=== PATIENT | female | born 1955 | race Caucasian/White ===

== ENCOUNTER → 2020-05-06 09:29 | Outpatient (CLI) | payer BC, SELFPAY ==
--- NOTE | ~2020-05-06 | XR_ITS ---
EXAMINATION: XR thoracic spine 3V DATE: 05/06/2020 09:54 INDICATION: Thoracic back pain for two months TECHNIQUE: AP, lateral and lateral swimmer's views of the thoracic spine were obtained. COMPARISON: None. FINDINGS: There is mild chronic anterior wedging in the midthoracic spine. No acute fracture is ident ified. The vertebral body heights are otherwise maintained. There is mild loss of intervertebral disc space height in the midthoracic spine. Bone alignment is normal. The prevertebral soft tissues are n ormal. Mild to moderate cervical spondylosis is incidentally noted. IMPRESSION: 1. Mild thoracic spondylosis without acute findings or significant interval change. Reviewed, dictated and finalized at location A. IMPRESSION: 1. Mild thoracic spondylosis without acute findings or significant interval joe charlenee.
== END ==
PROVIDERS: PCP Family Medicine; Visit Provider Family Medicine
DX: M47.894 Other spondylosis, thoracic region (principal)
CPT/HCPCS: 72072

== ENCOUNTER → 2020-07-05 10:25 | Outpatient (CLI) | payer BC, SELFPAY ==
--- NOTE | ~2020-07-05 | MM_ITS ---
EXAMINATION: MM screening brennan BI w janeth HISTORY: Screening mammogram TECHNIQUE: Craniocaudal and mediolateral oblique 3-D tomosynthesis images were obtained and synthetic 2-D images were generated. CAD analysis was submitted and interpreted. COMPARISON: , 03/19/2017 bilateral digital screening mammogram examinations BREAST PARENCHYMAL COMPOSITION: There are scattered areas of fibroglandular density. FINDINGS: Bilateral occasional benign calcifications. There is no evidence of suspicious mass, calcif ication, or architectural distortion to suggest malignancy in either breast. There has been no suspic ious interval change. IMPRESSION: 1. No mammographic evidence of malignancy. 2. Recommend routine screening mammography in one year. BI-RADS Category 2: Benign finding(s). Reviewed, dictated and finalized at location A.
== END ==
PROVIDERS: Visit Provider Obstetrics & Gynecology
DX: Z12.31 Encounter for screening mammogram for malignant neoplasm of breast (principal)
CPT/HCPCS: 77063; 77067

== ENCOUNTER → 2021-07-16 12:16 | Outpatient (CLI) | payer BC, SELFPAY ==
--- NOTE | ~2021-07-16 | MM_ITS ---
EXAMINATION: MM screening brennan BI w janeth HISTORY: Screening mammogram TECHNIQUE: Craniocaudal and mediolateral oblique 3-D tomosynthesis images were obtained and synthetic 2-D images were generated. CAD analysis was submitted and interpreted. COMPARISON: 07/05/2020, 04/05/2018, 03/19/2017 bilateral screening mammogram examinations BREAST PARENCHYMAL COMPOSITION: There are scattered areas of fibroglandular density. FINDINGS: Occasional benign calcifications. There is no evidence of suspicious mass, calcification, o r architectural distortion to suggest malignancy in either breast. There has been no suspicious inter ladarius change. IMPRESSION: 1. No mammographic evidence of malignancy. 2. Recommend routine screening mammography in one year. BI-RADS Category 2: Benign finding(s). Reviewed, dictated and finalized at location A. 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
== END ==
PROVIDERS: PCP Family Medicine; Visit Provider Obstetrics & Gynecology
DX: Z12.31 Encounter for screening mammogram for malignant neoplasm of breast (principal)
CPT/HCPCS: 77063; 77067

== ENCOUNTER → 2021-10-13 10:20 | Outpatient (CLI) | payer MEDICARE, SELFPAY ==
--- NOTE | ~2021-10-13 | DEXA_ITS ---
Bone Density Report Name: LEILANI SALINAS Age: 66 Sex: Female Ethnicity: White Date of : 1955 Indication: postmenopausal; screening for osteoporosis; Referring Provider: SOLOMON, ALEXEY Robles Study: Bone densitometry was performed. Exam Date: October 13, 2021 Accession number: [id number] Bone Density: Region BMD T-score Z-score Classification AP Spine (L1-L4) 1.165 1.1 3.0 Normal Femoral Neck (Left) 0.853 0.0 1.7 Normal Total Hip (Left) 0.989 0.4 1.7 Normal Femoral Neck (Right) 0.837 -0.1 1.5 Normal Total Hip (Right) 0.956 0.1 1.5 Normal Total Hip Mean 0.973 0.3 1.6 Normal World Health Organization criteria for BMD impression classify patients as: Normal (T-score at or above -1.0), Osteopenia (T-score between -1.0 and -2.5), or Osteoporosis (T-score at or below -2.5). 10-year Fracture Risk: FRAX not reported because: All T-scores for Spine Total, Hip Total, Femoral Neck at or above -1.0 Previous Exams: Region Exam Age BMD T-score BMD Change BMD Change Date g/cm2 vs Baseline vs Previous AP Spine(L1-L4) 10/13/2021 66 1.165 1.1 0.026* 0.026* 03/03/2017 61 1.138 0.8 Total Hip(Left) 10/13/2021 66 0.989 0.4 0.030* 0.030* 03/03/2017 61 0.959 0.1 Total Hip(Right) 10/13/2021 66 0.956 0.1 0.001 0.001 03/03/2017 61 0.955 0.1 *Denotes significance at 95% confidence level, LSC for AP Spine = 0.022 g/cm2, LSC for Total Hip = 0.027 g/cm2 Clinical Information Provided by Patient: Patient maximum height was 65 Menopause Age: 55 Onset of menses at age 12 Number of children 4 Impression: The patient has normal bone mass. No significant bone loss was observed. Discussion: BONE DENSITY IS ABOVE THE MINIMUM DESIRABLE LEVEL AT ALL SKELETAL SITES TESTED. This patient?s bone mineral density is above the minimum desirable level (T-score -1.0 or better) at all sites measured. The patient should follow a healthful lifestyle (good nutrition with adequate calcium and vitamin D, and appropriate weight-bearing exercise). Follow-Up: Consider repeating this study in 5 years or sooner if there is some new clinical indication. Reported by: CHINO on 10/13/2021 10:42:00 AM. Reviewed, dictated and finalized at location A. ANNIE
== END ==
PROVIDERS: PCP Family Medicine; Visit Provider Family Medicine
DX: Z13.820 Encounter for screening for osteoporosis (principal); Z78.0 Asymptomatic menopausal state
CPT/HCPCS: 77080

== ENCOUNTER → 2022-07-16 09:43 | Outpatient (CLI) | payer MEDICARE, SELFPAY ==
--- NOTE | ~2022-07-16 | XR_ITS ---
EXAMINATION: XR chest 2V DATE: 07/16/2022 10:04 INDICATION: Shortness of breath for one year TECHNIQUE: Frontal and lateral views of the chest are obtained COMPARISON: 04/08/2009 FINDINGS: The lungs are free of acute opacities. No pleural effusion or pneumothorax. The cardiomedia stinal silhouette is normal. There is moderate thoracic spondylosis. IMPRESSION: 1. No acute cardiopulmonary abnormality. Reviewed, dictated and finalized at location B. 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
== END ==
PROVIDERS: PCP Family Medicine; Visit Provider Family Medicine
DX: R06.00 Dyspnea, unspecified (principal)
CPT/HCPCS: 71046

== ENCOUNTER → 2022-10-08 15:07 | Outpatient (CLI) | payer MEDICARE, SELFPAY ==
--- NOTE | ~2022-10-08 | MM_ITS ---
EXAMINATION: MM screening brennan BI w janeth HISTORY: Screening TECHNIQUE: Craniocaudal and mediolateral oblique 3-D tomosynthesis images were obtained and synthetic 2-D images were generated. CAD analysis was submitted and interpreted. COMPARISON: Comparison to multiple prior studies sequentially, with oldest reviewed study dated 03/19. BREAST PARENCHYMAL COMPOSITION: There are scattered areas of fibroglandular density. FINDINGS: There is no evidence of suspicious mass, calcification, or architectural distortion to sugg est malignancy in either breast. There has been no suspicious interval change. IMPRESSION: 1. No mammographic evidence of malignancy. 2. Recommend routine screening mammography in one year. BI-RADS Category 1: Negative Reviewed, dictated and finalized at location A. 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
== END ==
PROVIDERS: PCP Family Medicine; Visit Provider Family Medicine
DX: Z12.31 Encounter for screening mammogram for malignant neoplasm of breast (principal)
CPT/HCPCS: 77063; 77067

== ENCOUNTER 2024-02-08 12:52 | Outpatient (CLI) | payer MEDICARE, SELFPAY ==
--- NOTE | ~2024-02-08 | MM_ITS ---
EXAMINATION: MM screening brennan BI w janeth HISTORY: Screening TECHNIQUE: Craniocaudal and mediolateral oblique 3-D tomosynthesis images were obtained and synthetic 2-D images were generated. CAD analysis was submitted and interpreted. COMPARISON: Comparison to multiple prior studies sequentially, with oldest reviewed study dated 03/19. BREAST PARENCHYMAL COMPOSITION: Not dense: There are scattered areas of fibroglandular density. FINDINGS: There is no evidence of suspicious mass, calcification, or architectural distortion to sugg est malignancy in either breast. There has been no suspicious interval change. IMPRESSION: 1. No mammographic evidence of malignancy. 2. Recommend routine screening mammography in one year. BI-RADS Category 1: Negative Reviewed, dictated and finalized at location B.
== END 2024-02-08 12:53 ==
LOC: MICIMG 12:52
PROVIDERS: PCP Obstetrics & Gynecology; Visit Provider Obstetrics & Gynecology
DX: Z12.31 Encounter for screening mammogram for malignant neoplasm of breast (principal)
CPT/HCPCS: 77063; 77067

== ENCOUNTER 2025-01-01 20:34 | Emergency (ER) | payer MEDICARE, SELFPAY ==
--- NOTE | ~2025-01-01 | CT_ITS ---
EXAMINATION: CT facial bones wo con DATE: 01/01/2025 21:56 INDICATION: fall . TECHNIQUE: Computed tomography (CT) of the facial bones and maxillofacial region was performed withou t intravenous contrast. Automated exposure control and iterative reconstruction technique were employ ed. The dose-length product was 344.27 mGy-cm. COMPARISON: None. FINDINGS: Soft Tissues: Right cheek swelling. Facial bones: No acute fracture. No lytic or blastic process. Eyes: The globes are intact. Bilateral lens replacements. The soft tissue planes of the orbits are m aintained. Paranasal Sinuses: The visualized aerated spaces are clear. Foreign Bodies: No radiopaque foreign bodies. Other Findings: None. IMPRESSION: No evidence of acute facial bone fracture. Reviewed, dictated and finalized at location K.
--- NOTE | ~2025-01-01 | XR_ITS ---
EXAM: XR wrist RT min 3V DATE: 01/01/2025 22:00 HISTORY: fall . COMPARISON: None available. FINDINGS: Osteopenia. Cortical irregularity along the proximal and lateral aspect of the proximal ri ght fifth metacarpal, with possible associated oblique extra-articular fracture line. No lytic or cierra stic lesion. Scattered degenerative change, moderate at the first CMC joint. No erosion or periosteal change. Soft tissues within normal limits. IMPRESSION: Possible oblique minimally displaced fracture of the proximal right fifth metacarpal. Reviewed, dictated and finalized at location K.
--- OUTSIDE RECORDS SUMMARY | 2025-01-01 20:36 | XMS_ITS | Clinical Summary ---
Author Organization [facility] Address [address] Attn: Epic Prelude ADT M[place]Y [place]O [address] Care Team Providers Care Lacing Operator Name Role Phone Sarina Ryan MD Primary Care Provider [phone] Medications meloxicam (MOBIC) 15 mg tablet Take 1 Tablet (15 mg) by mouth daily. 30 Tablet 1 03/29/2024 11:20 AM CDT 03/28/2024 Active Encounters Date Type Department Care Team Description 12/19/2024 External Device Data STL ABSTRACTION Provider, Abstract 12/12/2024 External Device Data STL ABSTRACTION Provider, Abstract 11/22/2024 External Device Data STL ABSTRACTION Provider, Abstract 11/13/2024 External Device Data STL ABSTRACTION Provider, Abstract 10/31/2024 External Device Data STL ABSTRACTION Provider, Abstract 10/04/2024 External Device Data STL ABSTRACTION Provider, Abstract from Last 3 Months Immunizations Immunization Administration Dates Next Due (SHINGRIX)(50 YRS UP) ZOSTER VACCINE RECOMBINANT, 0.5 ML, IM 07/23/2022 INFLUENZA VACCINE HIGH DOSE QUADRIVALENT 65 YR U P PF IM 06/22/2022 Social History Tobacco Use Types Packs/Day Years Used Date Smoking Tobacco: Never Assessed Sex and Gender Information Value Date Recorded Sex Assigned at Not on file Legal 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 Gender Identity Not on file Sexual Orientation Not on file Plan of Treatment Health Maintenance Due Date Last Done Comments DTAP/TDAP/TD VACCINES (1 - Tdap) 1973 COLORECTAL SCREENING 1999 Colorectal Cancer Screening 1999 FIT-DNA Q 3 years 1999 FIT/FOBT Q 1 year 1999 Flex Sig/CT Colonography Q 5 years 1999 PNEUMOCOCCAL VACCINE 50+ YEARS (1 of 1 - PCV) 09/10/19 05 ZOSTER VACCINE (2 of 2) 09/17/2022 07/23/2022 INFLUENZA VACCINE (#1) 2024 06/22/2022 RSV VACCINE (60+ or ) (1 - 1-dose 75+ series) 2029 Insurance RX [employer] DATA Medicare Part B RX [employer] (INTERNAL) [facility] [employer] RX [employer] Commercial Care Teams Lacing Operator Relationship Specialty Start Date End Date Sarina Ryan MD [address] [place] [id number] PCP - General 03/27/05
--- OUTSIDE RECORDS SUMMARY | 2025-01-01 20:36 | XMS_ITS | Encounter Summary ---
Author Organization [facility] Address [facility] [place] [address] Care Team Providers Care Hand Plug Shaper Name Role Phone Daphnie Thomas DO Primary Care Provider [phone] Encounter Details Date Type Department Care Team (Late st Contact Info) Description 11/28/2024 MyChart Message Enc [facility] [address] [place] [address] Daphnie Thomas DO [address] [place], [place] [id number] Singles vaccine Social History Tobacco Use Types Packs/Day Years Used Date Smoking Tobacco: Former Cigarettes 0.5 4 0 02/04/1975 - 02/04/1971 Passive Smoke Exposure: Never Smokeless Tobacco: Never Alcohol Use Standard Drinks/Week Comments Yes 1.7 (1 standard drink = 0.6 oz p ure alcohol) 5-6 times a week PHQ-2 Answer Date Recorded Patient Health Questionnaire-2 Score 0 09/28/2024 Comments No Sex and Gender Information Value Date Recorded Sex Assigned at Female 07/18/2024 3:10 PM RESPONDER Legal Sex Female 12:53 PM RESPONDER Gender Identity Female 07/18/2024 3:10 PM RESPONDER Sexual Orientation Straight 07/18/2024 3: 10 PM RESPONDER documented as of this encounter Plan of Treatment Upcoming Encounters Date Type Department Care Team (Late st Contact Info) Description 01/09/2025 10:40 AM CDT [facility] [address] [place], [place] [id number] Daphnie Thomas DO [address] [place] [address] documented as of this encounter Visit Diagnoses Not on filedocumented in this encounter Additional Health Concerns Assessment Noted Time PHQ-9 Depression Total Score: 1 09/28/19 25 1:40 PM RESPONDER documented as of this encounter Care Teams Hand Plug Shaper Relationship Specialty Start Date End Date Daphnie Thomas DO [address] [place] [address] PCP - General FAMILY PRACTICE 07/17/24 documented as of this encounter
--- OUTSIDE RECORDS SUMMARY | 2025-01-01 20:36 | XMS_ITS | Clinical Summary ---
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 Gender Identity Not on file Sexual Orientation Not on file Plan of Treatment Health Maintenance Due Date Last Done Comments DEXA Bone Density 1955 Hepatitis C Virus (HCV) Screening 1955 TdaP Immunization 1955 Colonoscopy 1999 Colorectal Cancer Screening 1999 Cologuard 2004 Immunochemical Fecal Occult Blood 2004 Mammogram 2004 Pneumococcal Immunization (5 0+ years) (1 of 1 - PCV) 2004 Zoster Immunization (1 of 2) 2004 Influenza Immunization (#1) 05/07/20242 10/2015, 07/15/2015 SARS-COV-2 Immunization ( - 2023-25 season) 2024 Respiratory Syncytial Virus (RSV) Immunization (Adult) (1 - 1-dose 75+ series) 2029 Hepatitis B Immunization Aged Out No longer eligible based on patient's age to complete this topic Meningococcal Immunization (ACWY) Aged Out No longer eligible b ased on patient's age to complete this topic Rotavirus Immunization Aged Out No lo nger eligible based on patient's age to complete this topic
--- OUTSIDE RECORDS SUMMARY | 2025-01-01 20:36 | XMS_ITS | Continuity of Care Document ---
Author Organization [facility] Address [address] [place] [address] Phone Care Team Providers Care Electrician Aircraft Name Role Phone [facility] [employer] Unavailable Unavail able Procedures Procedure Date Contact Lens Hydrophilic, Spherical Sales Tax Contact Lens Check Eye Exam & Treatment Contact Lens Fit, Med Superv, Level 1 Oc Contact Lens Hydrophilic, Spherical Medical Tax Contact Lens Hydrophilic, Spherical Tax - Medical Contact Lens Check Contact Lens Check Contact Lens Check Contact Lens Check Contact Lens Check Contact Lens Check Contact Lens Check Contact Lens Check Frames Deluxe Progressive Lens, Hi Index Anti-reflective Coating Tax - Medical Contact Lens Check Eye Exam & Treatment Refraction Advance Directives Directive Yes / No Effective Date File Name No Information Encounters Encounter Description Practice Location Reason(s) For Visit Diagnoses Date Provider Providers Copied on Encounter [facility], [address], [place], [place], [id number], [place] tel:[phone] [facility] No Information 0 [employer] . [address], [address], [place], [place], [address], [place]. tel:[phone] [facility], [address], [place], [place], [address], [place] tel:[phone] [facility] No Information Oct-2 2-201 0 Hogan OD Jah. [address] , [address], [place], [place], [facility], . tel:[phone] [facility], [address] [place] [address] [address], [place], [place], [address], [place] tel:[phone] [facility] No Information Oct-0 7-201 0 Hogan OD Jah. [address] , [address], [place], [place], [facility], [place]. tel:[phone] [facility], [address] [place] [address] [address], [place], [place], [address], [place] tel:[phone] [facility] No Information Aug-0 2-201 0 Hogan OD Jah. [address] , [address], [place], [place], [facility], [place]. tel:[phone] [facility], [address] [place] [address] [address], [place], [place], [address], [place] tel:[phone] [facility] No Information May-0 5-201 0 Hogan OD Jah. [address] , [address], [place], [place], [facility], [place]. tel:[phone] [facility], [address], [place], [place], [id number], [place] tel:[phone] [facility] No Information Apr-2 2-201 0 Hogan OD Jah. [address] , [address], [place], [facility], [place]. tel:[phone] [facility], [address], [place], [place], [address], [place] tel:[phone] [facility] No Information Apr-1 5-201 0 Hogan OD Jah. [address] , [address], [place], [facility], [place]. tel:[phone] [facility], [address], [place], [place], [address], [place] tel:[phone] [facility] No Information Apr-0 1-201 0 Hogan OD Jah. [address] , [address], [place], [facility], [place]. tel:[phone] [facility], [address] [place] [address] [address], [place], [place], [address], tel:[phone] [facility] No Information Mar-1 8-201 0 Hogan OD Jah. [address] , [address], [place], [facility], [place]. tel:[phone] [facility], [address] [place] [address] [address], [place], [place], [address], [place] tel:[phone] [facility] No Information Nov-0 6-200 9 Hogan OD Jah. [address] , [address], [place], [facility], [place]. tel:[phone] [facility], [address] [place] [address] [address], [place], [place], [address], [place] tel:[phone] [facility] No Information Oct-3 0-200 9 Hogan OD Jah. [address] , [address], [place], [facility], [place]. tel:[phone] [facility], [address], [place], [place], [address], [place] tel:[phone] [facility] No Information Oct-0 9-200 9 Hogan OD Jah. [address] , [address], [place], [address], [place]. tel:[phone] [facility], [address] [place] [address] [address], [place], [place], [address], [place] tel:[phone] [facility] No Information Oct-0 2-200 9 Hogan OD Jah. [address] [facility] , [address], [place], [address], [place]. tel:[phone] [facility], [address] [place] [address] [address], [place], [place], [address], [place] tel:[phone] [facility] No Information Sep-2 4-200 9 [employer] . [address], [address], [place], [place], [id number], . tel:[phone] Referring Provider: Jah Hogan OD A, [address] [place], [place] [address], [place], [place], [facility]. tel:[phone] sulting Provider: Andressa Garcia, [address], [place], [facility]. tel:[phone] [facility], [address] [place] [address] [address], [place], [place], [address], [place] tel:[phone] [facility] No Information Sep-2 2-200 9 Hogan OD Jah. [facility] [address] [address], [address], [place], [address], [place]. tel:[phone] [facility], [address] [place] [address] [address], [place], [place], [address], [place] tel:[phone] [facility] No Information Sep-1 1-200 9 Hogan OD Jah. [address] [facility] , [address], [place], [address], [place]. tel:[phone] Family History Family Member Type Diagnosis Age At Onset No Information Payers Payer name Insurance type Covered alliance party ID Authoriza tion(s) No Information Social History Type Description Quantity Date Captured Comments Sex Female Smoking Status No Information Chief Complaint And Reason For Visit No Information Reason For Referral Reason For Referral No Information History Of Present Illness Encounter Date Complaint History Of Prese nt Illness No Information Functional Status Date Functional Assessmen t No Information Instructions Date Instruction Additional Infor mation No Information Assessments Type Assessment Date No Information Patient Care Teams Name Effective Dates (start - stop) Status Members No Information
--- OUTSIDE RECORDS SUMMARY | 2025-01-01 20:36 | XMS_ITS | Encounter Summary ---
Author Organization [facility] Address 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 Gender Identity Not on file Sexual Orientation Not on file documented as of this encounter Plan of Treatment Not on file documented as of this encounter Procedures Procedure Name Priority Date/Time Associated Diagnosis Comments PTT Routine 03/28/2005 5:55 AM CDT POC ACTIVATED CLOTTING TIME Routine 03/27/2005 4:31 PM CDT POC ACTIVATED CLOTTING TIME Routine 03/27/2005 3:48 PM CDT POC ACTIVATED CLOTTING TIME Routine 03/27/2005 2:40 PM CDT POC ACTIVATED CLOTTING TIME Routine 03/27/2005 12:00 PM CDT POC ACTIVATED CLOTTING TIME Routine 03/27/2005 11:01 AM CDT POC ACTIVATED CLOTTING TIME Routine 03/27/2005 10:35 AM CDT POC ACTIVATED CLOTTING TIME Routine 03/27/2005 9:59 AM CDT POC ACTIVATED CLOTTING TIME Routine 03/27/2005 9:47 AM CDT PROTIME-INR Routine 03/27/2005 6:12 AM CDT HCG QUALITATIVE, URINE Routine 03/27/2005 6:12 AM CDT CBC WITH DIFFERENTIAL Routine 03/27/2005 6:11 AM CDT CBC WITH DIFFERENTIAL Routine 03/27/2005 6:11 AM CDT BASIC METABOLIC PANEL Routine 03/27/2005 6:11 AM CDT documented in this encounter Results * (ABNORMAL) PTT (03/28/2005 5:55 AM CDT) PTT 85.3(H) 25.0 - 35.0 Seconds INTERFACE SYSTEM Comment: PTT Therapeutic Range: Heparin Level PTT (seconds) <0.10 units/mL <45 0.10 - 0.30 units/mL 45 - 65 0.30 - 0.70 units/mL* 65 - 106* 0.70 - 1.00 units/mL 106 - 137 *corresponds to therapeutic range for unfractionated heparin 03/28/2005 5:55 AM CDT Lencho Wells HEMATOLOGY ORDERABLES Final Resu lt Performing Organization Address [facility] Co de Phone Number INTERFACE SYSTEM Refer to clinic/hospital department * POC ACTIVATED CLOTTING TIME (03/27/2005 4:31 PM CDT) ACT POC 158 Seconds INTERFACE SYSTEM Comment: Normal Donors range 113-149 Non-heparin patients 89-169 ACT value for sheath pull at [facility] has been established to be < or = to 1 70. (See also Nursing Procedures for sheath pull in related nursing areas) 03/27/2005 4:31 PM CDT us Historical Provider POINT OF CARE TESTING Final Result INTERFACE SYSTEM Refer to clinic/hospital department * POC ACTIVATED CLOTTING TIME (03/27/2005 3:48 PM CDT) ACT POC 193 Seconds INTERFACE SYSTEM Comment: Normal Donors range 113-149 Non-heparin patients 89-169 ACT value for sheath pull at [facility] has been established to be < or = to 1 70. (See also Nursing Procedures for sheath pull in related nursing areas) 03/27/2005 3:48 PM CDT Historical Provider POINT OF CARE TESTING Final Result Performing Organization Address [facility] Phone Number INTERFACE SYSTEM Refer to clinic/hospital department * POC ACTIVATED CLOTTING TIME (03/27/2005 2:40 PM CDT) ACT POC 227 Seconds INTERFACE SYSTEM Comment: Normal Donors range 113-149 Non-heparin patients 89-169 ACT value for sheath pull at [facility] has been established to be < or = to 1 70. (See also Nursing Procedures for sheath pull in related nursing areas) 03/27/2005 2:40 PM CDT Historical Provider POINT OF CARE TESTING Final Result Performing Organization Address [facility] Phone Number INTERFACE SYSTEM Refer to clinic/hospital department * POC ACTIVATED CLOTTING TIME (03/27/2005 12:00 PM CDT) ACT POC 260 Seconds INTERFACE SYSTEM Comment: Normal Donors range 113-149 Non-heparin patients 89-169 ACT value for sheath pull at [facility] has been established to be < or = to 1 70. (See also Nursing Procedures for sheath pull in related nursing areas) 03/27/2005 12:0 0 PM CDT Historical Provider POINT OF CARE TESTING Final Result Performing Organization Address [facility] Phone Number INTERFACE SYSTEM Refer to clinic/hospital department * POC ACTIVATED CLOTTING TIME (03/27/2005 11:01 AM CDT) ACT POC 309 Seconds INTERFACE SYSTEM Comment: Normal Donors range 113-149 Non-heparin patients 89-169 ACT value for sheath pull at [facility] has been established to be < or = to 1 70. (See also Nursing Procedures for sheath pull in related nursing areas) 03/27/2005 11:0 1 AM CDT Historical Provider POINT OF CARE TESTING Final Result Performing Organization Address [facility] Phone Number INTERFACE SYSTEM Refer to clinic/hospital department * POC ACTIVATED CLOTTING TIME (03/27/2005 10:35 AM CDT) ACT POC 301 Seconds INTERFACE SYSTEM Comment: Normal Donors range 113-149 Non-heparin patients 89-169 ACT value for sheath pull at [facility] has been established to be < or = to 1 70. (See also Nursing Procedures for sheath pull in related nursing areas) 03/27/2005 10:3 5 AM CDT [facility] Provider POINT OF CARE TESTING Final Result Performing Organization Address [facility] Phone Number INTERFACE SYSTEM Refer to clinic/hospital department * POC ACTIVATED CLOTTING TIME (03/27/2005 9:59 AM CDT) ACT POC 369 Seconds INTERFACE SYSTEM Comment: Normal Donors range 113-149 Non-heparin patients 89-169 ACT value for sheath pull at [facility] has been established to be < or = to 1 70. (See also Nursing Procedures for sheath pull in related nursing areas) 03/27/2005 9:59 AM CDT Historical Provider POINT OF CARE TESTING Final Result Performing Organization Address [facility] Phone Number INTERFACE SYSTEM Refer to clinic/hospital department * POC ACTIVATED CLOTTING TIME (03/27/2005 9:47 AM CDT) ACT POC 252 Seconds INTERFACE SYSTEM Comment: Normal Donors range 113-149 Non-heparin patients 89-169 ACT value for sheath pull at [facility] has been established to be < or = to 1 70. (See also Nursing Procedures for sheath pull in related nursing areas) 03/27/2005 9:47 AM CDT [facility] Provider POINT OF CARE TESTING Final Result Performing Organization Address [facility] Phone Number INTERFACE SYSTEM Refer to clinic/hospital department * HCG QUALITATIVE, URINE (03/27/2005 6:12 AM CDT) HCG QUAL URINE Negative Negative INTER FACE SYSTEM SPECIFIC GRAVITY UA 1.020 1.001 - 1.035 INTERFACE SYSTEM 03/27/2005 6:12 AM CDT Lencho Wells URINE ORDERABLES Final Result Performing Organization Address [facility] Phone Number INTERFACE SYSTEM Refer to clinic/hospital department * PROTIME-INR (03/27/2005 6:12 AM CDT) PROTIME 15.3 12.9 - 15.7 Seconds INTERFACE SYSTEM INR 1.1 0.9 - 1.1 INTERFACE SYSTEM Comment: INR Therapeutic Range: Adult: 2.0 - 3.0 for pulmonary embolism or prophylaxis against venous thrombosis or systemic embolization. 2.0 - 3.0 for patients with tissue heart valves. 2.5 - 3.5 for patients with mechanical heart valves or post UT. Pediatric (12 years and under): 1.5 - 3.0 Although the target range in children is not well established , INR values of 1.5 - 3.0 are recommended for most patients. Higher values have been used in children with prosthetic cardiac valves and hereditary clotting disorders. (<3 days) therapeutic ranges have not been established. 03/27/2005 6:12 AM CDT Lencho Wells HEMATOLOGY ORDERABLES Final Resu lt Performing Organization Address [facility] Phone Number INTERFACE SYSTEM Refer to clinic/hospital department * BASIC METABOLIC PANEL (03/27/2005 6:11 AM CDT) GLUCOSE 92 65 - 109 mg/dL INTERFACE SYSTEM CREATININE 0.9 0.5 - 1.3 mg/dL INTERFACE SYSTEM CALCIUM 9.1 8.6 - 10.2 mg/dL INTERFACE SYSTEM BUN 14 6 - 20 mg/dL INTERFACE SYSTEM SODIUM 140 135 - 145 mmol/L INTERFACE SYSTEM POTASSIUM 4.3 3.5 - 4.9 mmol/L INTERFACE SYSTEM CHLORIDE 104 96 - 108 mmol/L INTERFACE SYSTEM CO2 29 22 - 30 mmol/L INTERFACE SYSTEM 03/27/2005 6:11 AM CDT Lencho Wells CHEMISTRY ORDERABLES Final Resul t Performing Organization Address [facility] de Phone Number INTERFACE SYSTEM Refer to clinic/hospital department * CBC WITH DIFFERENTIAL (03/27/2005 6:11 AM CDT) NEUTROPHILS 59 45 - 70 % INTERFAC E SYSTEM LYMPHOCYTES 30 16 - 45 % INTERFAC E SYSTEM MONOCYTES 9 3 - 13 % INTERFACE SYSTEM EOSINOPHILS 2 0 - 7 % INTERFAC E SYSTEM BASOPHILS 0 0 - 2 % INTERFACE SYSTEM NEUTROPHIL ABSOLUTE 4.64 1.90 - 7.00 K/uL INTERFACE SYSTEM LYMPHOCYTE ABSOLUTE 2.35 0.70 - 4.50 K/uL INTERFACE SYSTEM MONOCYTE ABSOLUTE 0.71 0.10 - 1.30 K/uL INTERFACE SYSTEM EOSINOPHIL ABSOLUTE 0.12 0.00 - 0.70 K/uL INTERFACE SYSTEM BASOPHILS ABSOLUTE 0.02 0.00 - 0.20 K/uL INTERFACE SYSTEM 03/27/2005 6:11 AM CDT Lencho Wells HEMATOLOGY ORDERABLES Final Resu lt Performing Organization Address [facility] Phone Number INTERFACE SYSTEM Refer to clinic/hospital department * (ABNORMAL) CBC WITH DIFFERENTIAL (03/27/2005 6:11 AM CDT) WBC 7.8 4.0 - 9.8 K/uL INTERFACE SYSTEM RBC 4.35(L) 4.50 - 5.40 M/uL INTERFACE SYSTEM HEMOGLOBIN 14.0 13.6 - 16.5 g/dL INTERFACE SYSTEM HEMATOCRIT 41.2 40.0 - 48.0 % INTERFACE SYSTEM MCV 94.7 82.0 - 99.0 fL INTERFACE SYSTEM MCH 32.2 27.2 - 32.6 pg INTERFACE SYSTEM MCHC 34.0 31.5 - 35.5 % INTERFACE SYSTEM RDW 12.8 11.5 - 14.5 % INTERFACE SYSTEM RDW-STDEV 44.7 37.1 - 48.7 fL INTERFACE SYSTEM PLATELETS 200 140 - 350 K/uL INTERFACE SYSTEM MPV 10.5 9.3 - 12.4 fL INTERFACE SYSTEM 03/27/2005 6:11 AM CDT Lencho Wells HEMATOLOGY ORDERABLES Final Resu lt INTERFACE SYSTEM Refer to clinic/hospital department documented in this encounter Visit Diagnoses Diagnosis Atrial fibrillation (CMS/HCC)- Primary Atrial fibrillation documented in this encounter Care Teams Mold Inspector Relationship Specialty Start Date End Date Sarina Ryan MD [address] [place] [address] PCP - General 03/27/05 documented as of this encounter
--- OUTSIDE RECORDS SUMMARY | 2025-01-01 20:36 | XMS_ITS | Clinical Summary ---
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
--- OUTSIDE RECORDS SUMMARY | 2025-01-01 20:36 | XMS_ITS | Encounter Summary ---
Author Organization [facility] Address [facility] [place] [address] Care Team Providers Care Aeronautics Teacher Name Role Phone Daphnie Thomas DO Primary Care Provider [phone] Encounter Details Date Type Department Care Team (Late st Contact Info) Description 11/01/2024 [facility] [address] [place], [place] [id number] Daphnie Thomas DO 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 [place] [address] Daphnie Thomas DO [address] [place] [address] documented as of this encounter Visit Diagnoses Not on filedocumented in this encounter Additional Health Concerns Assessment Noted Time PHQ-9 Depression Total Score: 1 09/28/19 25 1:40 PM TRAVELING SALES EXECUTIVE documented as of this encounter Care Teams Aeronautics Teacher Relationship Specialty Start Date End Date Daphnie Thomas DO [address] [place] [address] PCP - General FAMILY PRACTICE 07/17/24 documented as of this encounter
--- OUTSIDE RECORDS SUMMARY | 2025-01-01 20:36 | XMS_ITS | Clinical Summary ---
Author Organization [facility] Address [address] [place] [address] Care Team Providers Care Kalsominer Name Role Phone Daphnie Thomas DO Primary Care Provider [phone] Allergies Active Allergy Reactions Criticality Noted Date Comments Sherif Hivkathy 09/27/2008 Medications Acetaminophen (TYLENOL ARTHRITIS PAIN OR) Take by mouth nightly. Active famotidine (PEPCID) 20 MG tablet Take 1 tablet (20 mg total) by mouth nightly. 10/20/2024 Active omeprazole (PRILOSEC) 40 MG capsule Take 1 capsule (40 mg total) by mouth every morning. 10/20/2024 Active azelastine (ASTELIN) 0.1 % nasal spray 1 spray by Nasal route 2 (two) times daily. 10/24/2024 Active ibuprofen (MOTRIN) 800 MG tablet Take 1 tablet (800 mg total) by mouth every 8 (eight) hours as needed for Pain. 10/24/2024 Active methocarbamol (ROBAXIN) 500 MG tablet Take 2 tablets (1,000 mg total) by mouth nightly. Active meloxicam (MOBIC) 15 MG tablet Take 1 tablet (15 mg total) by mouth daily. Active Active Problems Problem Noted Date Diagnosed Date TMJ (temporomandibular joint disorder) Overview (10/26/2024): 10/26/2024: She reports she recently saw oral surgeon Nael Rudolph for TMJ pain in her right jaw that started in June 2024. She reports he started her on muscle relaxer to take at nighttime and ibuprofen 80 mg tablet 3 times daily for 14 days. She reports she is taking ibuprofen with food. Assessment & Plan (10/26/2024 4:33 PM PRODUCTION ADMINISTRATOR): She is counseled to take ibuprofen with food as can be irritating to stomach lining. Deferring care at this time to oral surgeon. Nasal septal deviation 10/26/2024 Assessment & Plan (10/26/2024 4:35 PM PRODUCTION ADMINISTRATOR): Continue following and plan of care with ENT. Post-nasal drainage 10/26/2024 Assessment & Plan (10/26/2024 4:35 PM PRODUCTION ADMINISTRATOR): Continue following and plan of care with ENT Encounter for screening mamm ogram for malignant neoplasm of breast 10/26/2024 Overview (10/26/2024): 10/26/2024: Last mammogram completed in 2022. Assessment & Plan (10/26/2024 4:34 PM PRODUCTION ADMINISTRATOR): Mammogram ordered to [facility]. Laryngopharyngeal reflux (LPR) 10/20/2024 Overview (10/26/2024): 10/26/2024: Noted by ENT on nasal endoscopy 10/20/2024 showing mild inflammation of the arytenoid cartilages consistent with LPR She started regimen recommended by ENT. She reports she is returning to be seen again by ENT November 27, 2024. Assessment & Plan (10/26/2024 4:35 PM PRODUCTION ADMINISTRATOR): Continue regimen prescribed by ENT and follow with ENT. Pescetarian 09/28/2024 Overview (09/28/2024): 09/28/2024: She reports that she does not eat meat except for fish Decreased glomerular filtration rate (GFR) 08/17 Overview (08/17/2024): 07/20/2024 GFR ESTIMATE >90 ML/MIN/1.73 M2 83 Low Assessment & Plan (08/17/2024 4:16 PM PRODUCTION ADMINISTRATOR): Results are communicated to patient and her previously communicated to patient through [employer] message. She is counseled that GFR is mildly decreased however we need to repeat CMP in 3 months to confirm if it is still stable or has changed. She lacks significant risk factors of hypertension or diabetes. Arthritis 07/20/2024 Overview (07/20/2024): Patient reports she has back pain and arthritis in ankles and knees. She reports she has taken meloxicam in the past as needed with no significant relief. She reports taking Tylenol arthritis at nighttime daily. Assessment & Plan (07/20/2024 2:59 PM PRODUCTION ADMINISTRATOR): Patient may be a good candidate for Celebrex. I would like to assess kidney function. Comprehensive metabolic panel ordered. Can discuss in more detail at subsequent visit. Mixed hyperlipidemia 07/20/2024 Overview (07/20/2024): Patient shows lipid panel results from 10/06/2023 Total cholesterol: 214 HDL cholesterol: 77 LDL cholesterol: 120 She reports this is improved from previous lipid panel in 2022. She reports she was offered medication in the past however did not take it. She reports she was told in the past that her high HDL outweighs the other cholesterol values. Assessment & Plan (07/20/2024 12:47 PM PRODUCTION ADMINISTRATOR): This patient is not on medication therapy, we will wait and repeat lipid panel on or after 10/06/2024. Will can further discuss medication options at a subsequent visit. Current ASCVD risk score is 7.2% and recommends moderate intensity statin therapy because 10-year risk is between 5 and 7.5%. Chronic throat clearing 07/20/2024 Overview (09/28/2024): Initial visit: Reports she had an illness in 2018 and was not seen during that time period by a provider. She reports since then, she has been experiencing chronic throat clearing and feels like something is in her throat. She reports she clears her throat often. She reports she coughs throughout the day and prior to bedtime however does not awaken from coughing. She reports her symptoms are worse at nighttime. She states she barely rarely coughs up anything however sometimes does cough up phlegm. She reports she sneezes a lot. She states she has been taking [id number] decongestant medication every night before bed. She reports this is a generic Claritin or similar. 08/17/2024: Patient was started on PPI empirically for suspected GERD related to her chronic throat clearing. She reports she has been taking pantoprazole 40 mg daily and has only missed 1 to 2 days. She reports overall she has had some improvement and is not staying up late at night coughing however still gets phlegm in my throat . She reports she does have trouble at times memory to take medication 30 minutes before eating. She denies any side effects or concerns related to medication. 09/28/2024: She has been on pantoprazole 40 mg daily for over 6 weeks. She reports she has had some improvement in gastroesophageal reflux and has only had acid reflux one episode in which she had to take a Tums to help with symptoms. She reports there is been no noticeable improvement in chronic throat clearing since starting medication. Assessment & Plan (09/28/2024 1:51 PM PRODUCTION ADMINISTRATOR): Continue pantoprazole daily at this time. Suspect patient may have LPR and would like to request referral to ENT as she may need a scope to help provide more accurate diagnosis. Assessment & Plan (08/17/2024 4:21 PM PRODUCTION ADMINISTRATOR): Continue treating empirically for GERD. Suspect patient may have LPR if symptoms fail to improve and she may need referral to ENT. Assessment & Plan (07/20/2024 2:56 PM PRODUCTION ADMINISTRATOR): I suspect this could be related to GERD. Patient is not having difficulty swallowing, trouble breathing or drooling. See under GERD. If does not improve with PPI, we can consider other treatments. Patient may need referral to ENT in the future. Gastroesophageal reflux dise ase, unspecified whether esophagitis present 07/20/2024 Overview (09/28/2024): Initial visit: Reports she has acid reflux symptoms several times a year. She reports she typically takes [id number] Tums which do help. She denies vomiting. She reports she does eat dinner late. 08/17/2024: Patient was started on PPI empirically for suspected GERD related to her chronic throat clearing. She reports she has been taking pantoprazole 40 mg daily and has only missed 1 to 2 days. She reports overall she has had some improvement and is not staying up late at night coughing however still gets phlegm in my throat . She reports she does have trouble at times memory to take medication 30 minutes before eating. She denies any side effects or concerns related to medication. 09/28/2024: She has been on pantoprazole 40 mg daily for over 6 weeks. She reports she has had some improvement in gastroesophageal reflux and has only had acid reflux one episode in which she had to take a Tums to help with symptoms. Assessment & Plan (09/28/2024 1:52 PM PRODUCTION ADMINISTRATOR): Continue PPI at this time. Referral has been placed to ENT. Suspect LPR. Assessment & Plan (08/17/2024 4:19 PM PRODUCTION ADMINISTRATOR): Will continue pantoprazole 40 mg once daily for an additional month and reevaluate symptoms. Will consider referral to ENT if not significantly improving. Assessment & Plan (07/20/2024 2:46 PM PRODUCTION ADMINISTRATOR): I suspect that patient's reflux may be contributing to her chronic throat clearing and chronic cough. We will treat with pantoprazole 40 mg once daily. Patient is instructed to take this medication 30 minutes prior to largest meal. She is also counseled on behavior such as not eating food 3 to 4 hours prior to bedtime and avoiding spicy foods, chocolate, caffeine, mint and then other foods that can exacerbate symptoms of reflux. Status post left knee replacement 07/20/2024 Overview (07/20/2024): Patient reports surgery April 2010 Intractable episodic headache, unspecified heada santana type 07/20/2024 Overview (07/20/2024): Patient reports she has headaches/migraine headaches often times for 3 or so days at a time. She reports she does not often take medication however will occasionally take Excedrin Migraine. She reports she has been given prescription medication the past however is unsure of name and when. Assessment & Plan (07/20/2024 2:58 PM PRODUCTION ADMINISTRATOR): Patient is to continue Excedrin at this time. We can discuss in further depth at another visit. Asymptomatic microscopic hematuria 07/20/2024 Overview (10/26/2024): Initial visit: Patient reports she always has blood in my urine and has for years. She reports she has had imaging done regarding this however has been many years. 08/17/2024: She reports she does not have a urologist however has seen one within the last 30+ years. She denies gross hematuria. 07/20/2024 RBC/HPF 0 - 3 /HPF 30-50 Abnormal 10/26/2024: She reports she has scope with urology scheduled for 11/03/2024. Assessment & Plan (10/26/2024 4:32 PM PRODUCTION ADMINISTRATOR): Awaiting scope and results from scope. Assessment & Plan (09/28/2024 1:49 PM PRODUCTION ADMINISTRATOR): 09/28/2024: She had CT abdomen pelvis with and without contrast completed. There were some incidental findings. There was an 8 mm renal cortical cyst noted that was left as indeterminate. Recommendation was to order renal ultrasound in 6 to 12 months to compare if there was no previous imaging to compare to which there is not at this time. There is no noted contributing factor to microscopic hematuria. Patient reports she has upcoming appointment on October 05, 2024 with urology with an advanced practice provider in the practice. Will continue to await second opinion. Assessment & Plan (08/17/2024 4:19 PM PRODUCTION ADMINISTRATOR): Is communicated to patient that based on her age and the amount of RBCs present in her urine with negative urine culture, is recommended that we have CT urography performed and refer to urology. Patient is agreeable to this. Assessment & Plan (07/20/2024 2:57 PM PRODUCTION ADMINISTRATOR): Urinalysis ordered. Status post ablation of atrial fibrillation 07/07 Overview (09/28/2024): Initial visit 07/20/2024: Patient reports she had an ablation for something in her heart in April 2005 and stated the phrase a fib . We need to request records for clarity. Patient is not currently on any medication therapy. 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 09/28/2024: She reports she had ablation procedure by assistance coordinator at [facility] in [place], [place]. She reports she does not remember the name of physician provider. Assessment & Plan (09/28/2024 1:58 PM PRODUCTION ADMINISTRATOR): Attempting to request records regarding this ablation. Assessment & Plan (07/20/2024 2:57 PM PRODUCTION ADMINISTRATOR): Currently unsure of accurate diagnoses. We are requesting records for clarity. Negative depression screening 07/20/2024 Status post bilateral cataract extraction 2023 Overview (07/20/2024): Patient notes this was done in August 2023. Family history of hypertension 07/20/2024 Overview (07/20/2024): In mother and father Family history of lung cancer 07/20/2024 Overview (07/20/2024): In father and brother Nicotine dependence, cigarettes, in remission Overview (07/20/2024): Patient reports smoking for approximately 2 years and subsequently quitting. Assessment & Plan (07/20/2024 3:03 PM PRODUCTION ADMINISTRATOR): She does not meet any lung cancer screening guidelines based on previous nicotine use. Encounters Date Type Department Care Team Description 11/28/2024 [employer] Message Enc [facility] - [place] [id number] [place] [address] Daphnie Thomas, DO Singles vaccine 11/27/2024 Scan [facility] INFO SRVCS Scanned, Doc Med Group 11/01/2024 MyChart [facility] [place] [address] [place] [address] Daphnie Thomas, DO Mammogram 10/30/2024 Telephone [facility] [place] [address] [place] [address] Daphnie Thomas, DO Record Request 10/26/2024 2:20 PM PRODUCTION ADMINISTRATOR Office Visit [facility] [place] [place] [address] [place] [address] Daphnie Thomas, DO Follow Up (Pt states she seen ENT 10/20/2023 @ [facility] /fátima Jeter Np) 10/26/2024 Travel 10/20/2024 Scan [facility] INFO SRVCS Scanned, Doc Med Group 10/04/2024 Scan [facility] INFO SRVCS Scanned, Doc Med Group from Last 3 Months Immunizations Immunization Administration Dates Next Due Arexvy Respiratory Syncytial Virus (RSV, adjuvanted) 0.5 mL, PF 06/11/2023 Fluzone High Dose (IIV, trivalent, 0.5mL) 2023 Fluzone High Dose - >Age 65 (Prefilled Syringe) 06/04/2023,06/22/2022 Influenza (Generic) 05/28/2016,07/15/2015 PFIZER COVID-19 (12+) MRNA, LNP-S, PF, JOSE-SUCROSE, 30 MCG/0.3 ML (COMIRNATY) 05/28/2023 Pneumococcal (Prevnar 20) 06/07/2022 Shingrix 09/18/2022,07/23/2022 Family History Medical History Relation Comments Cancer Brother Lung Alcohol Abuse Daughter 1 No Known Problems Daughter 2 No Known Problems Daughter 3 Cancer Father Lung Hypertension Father Kidney Disease Father removed one kidn ey PTSD Maternal Grandfather Suicidality Maternal Grandfather Lung Disease Maternal Grandmother Hypertension Mother Miscarriages / Stillbirths Mother Stroke Mother No Known Problems Paternal Grandfather Alcohol Abuse Paternal Grandmother Alcohol Abuse Paternal Uncle 1 Depression Paternal Uncle 1 Cancer Paternal Uncle 2 No Known Problems Sister No Known Problems Son Relation Status Comments Brother Daughter 1 Daughter 2 Alive Daughter 3 Alive Father Maternal Grandfather Maternal Grandmother Mother Paternal Grandfather Paternal Grandmother Paternal Uncle 1 Paternal Uncle 2 Sister Alive Son Alive Social History Tobacco Use Types Packs/Day Years Used Date Smoking Tobacco: Former Cigarettes 0.5 4 0 02/04/1975 - 02/04/1971 Passive Smoke Exposure: Never Smokeless Tobacco: Never Tobacco Cessation:Counseling Given: No Alcohol Use Standard Drinks/Week Comments Yes 1.7 (1 standard drink = 0.6 oz p ure alcohol) 5-6 times a week PHQ-2 Answer Date Recorded Patient Health Questionnaire-2 Score 0 09/28/2024 Comments No Sex and Gender Information Value Date Recorded Sex Assigned at Female 07/18/2024 3:10 PM PRODUCTION ADMINISTRATOR Legal Sex Female 12:53 PM PRODUCTION ADMINISTRATOR Gender Identity Female 07/18/2024 3:10 PM PRODUCTION ADMINISTRATOR Sexual Orientation Straight 07/18/2024 3: 10 PM PRODUCTION ADMINISTRATOR Last Filed Vital Signs Vital Sign Reading Time Taken Comments Blood Pressure 106/66 10/26/2024 2:40 PM PRODUCTION ADMINISTRATOR Pulse 61 10/26/2024 2:40 PM PRODUCTION ADMINISTRATOR Temperature 36.8 C (98.2 F) 10/26/2024 2:40 PM PRODUCTION ADMINISTRATOR Respiratory Rate 16 10/26/2024 2:40 PM PRODUCTION ADMINISTRATOR Oxygen Saturation 98% 10/26/2024 2:40 PM PRODUCTION ADMINISTRATOR Inhaled Oxygen Concentration - - Weight 70.3 kg (155 lb) 10/26/2024 2:40 PM PRODUCTION ADMINISTRATOR Height 162.6 cm (5' 4 ) 10/26/2024 2:40 PM PRODUCTION ADMINISTRATOR Body Mass Index 26.61 10/26/2024 2:40 PM PRODUCTION ADMINISTRATOR Plan of Treatment Upcoming Encounters Date Type Department Care Team (Late st Contact Info) Description 01/09/2025 10:40 AM CDT Office Visit [facility] [place] [address] [place] [address] Daphnie Thomas, DO [address] [place] [address] Health Maintenance Due Date Last Done Comments Hepatitis C 1973 DTaP, Tdap and Td Vaccines (1 - Tdap) 1974 Annual Medicare Wellness Visit 2019 COVID-19 Vaccine (8 - season) 2024 05/30/2024, 05/28/2023, 06/04/2022, Additional history exists Mammogram Screening 02/07/2025 02/08/2024, 10/08/2022, 07/16/2021, Additional history exists Colorectal Cancer Screening Colonoscopy (10 Years) 07/05/2029 07/05/2019 Dexa Scan (General) Completed 10/13/2021 Pneumococcal Vaccine: 50+ Years Completed 06/07/2022 Zoster Vaccines Completed 09/18/2022, 07/23/2022 RSV Immunization or 60+ Years Completed 06/11/2023 PHQ-2 (Physician [place]) Completed 09/28/2024 Meningococcal B Vaccine Aged Out No l onger eligible based on patient's age to complete this topic Meningococcal Vaccine Aged Out No az molly eligible based on patient's age to complete this topic RSV Immunizations Under 20 Months Aged Out No longer eligible based on patient's age to complete this topic Procedures Procedure Name Priority Date/Time Associated Diagnosis Comments MAMMOGRAM GENERIC (SCAN ORDER) 02/08/2024 BONE DENSITY GENERIC (SCAN ORDER) 10/13/2021 COLONOSCOPY GENERIC (SCAN ORDER) 07/05/2019 from Last 3 Months or Most Recently Relevant to Health Maintenance Results * MAMMOGRAM GENERIC (SCAN ORDER) (02/08/2024) Anatomical Region Laterality Modality Other 02/08/2024 [facility] Scanned SCANNING Final Resu lt * BONE DENSITY GENERIC (SCAN ORDER) (10/13/2021) Anatomical Region Laterality Modality Other 10/13/2021 [facility] Scanned SCANNING Final Resu lt * COLONOSCOPY GENERIC (SCAN ORDER) (07/05/2019) 07/05/2019 [facility] Scanned SCANNING Final Resu lt from Last 3 Months or Most Recently Relevant to Health Maintenance Insurance MEDICARE [facility] [employer] Care Teams Kalsominer Relationship Specialty Start Date End Date Daphnie Thomas DO [address] [place] [address] PCP - General FAMILY PRACTICE 07/17/24
--- OUTSIDE RECORDS SUMMARY | 2025-01-01 20:36 | XMS_ITS | Referral Summary ---
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
[2025-01-01 20:48] VITALS: BP 137/76; PULSE 77; RESP 17; TEMP 36.6; O2SAT 98
[2025-01-01 21:34] VITALS: BP 132/72; PULSE 75; RESP 16; TEMP 36.8; O2SAT 95
--- NOTE | 2025-01-01 21:46 | ED_ITS ---
HPI - Fall General Chief Complaint: Fall Stated Complaint: fall, right wrist, right cheek Time Seen by Provider: 01/01/25 21:33 History of Present Illness HPI Narrative: 69-year-old female presenting to the emergency department for evaluation after a ground level mechanical fall. She tripped and fell over a curb and landed onto her right face and right wrist. She was otherwise in her normal state of health. Does not take any blood thinner medications. Did not lose consciousness. Denies any neck pain, nausea, vomiting, mental status changes, abdominal pain, chest pain. She has some pain or tenderness over the ulnar aspect of the right wrist, minor swelling over the wrist, minor swelling over the right cheek but no restricted eye movements, no pain with ocular movements. No visual deficits. Did take a Tylenol extra-strength before arriving with improvement in pain to 10/16 Related Data Home Medications ?Medication ?Instructions ?Recorded ?Confirmed ?Last Taken ?Type famotidine 20 mg tablet 20 mg PO DAILY 12/25/24 12/27/24 Unknown History multivitamin (Daily Multi-Vitamin 1 tablet PO DAILY 12/27/24 12/27/24 Unknown History tablet) Allergies Allergy/AdvReac Type Severity Reaction Status Date / Time No Known Allergies Allergy Verified 01/01/25 20:35 Review of Systems Review of Systems: As reviewed above in HPI [facility] Past Medical History Medical History Heartburn Chronic throat clearing Chronic cough Cataract Dizziness Screening mammogram, encounter for Encounter for Papanicolaou smear for cervical cancer screening Surgical History Surgical History Delivery by section (~1987) H/O colonoscopy (06/20/10) fmhx-to repeat in 5 yrs History of bunionectomy (~04/2017) History of orthopedic surgery (~09/2008) knee surgery & 1972 H/O major cardiovascular surgery (~2004) Family History Family History Mother Hypertension Cerebrovascular accident Father Lung cancer Cancer of kidney Sibling Lung cancer brother Social History Social History Smoking packs per day: 0.5 Smoking cigarettes per day: 10.0 Years smoked: 4 Smoking pack-years: 2.00 Smoking status: Former smoker Tobacco type: cigarettes Second hand tobacco smoke exposure: No Smoking end date: 09/06/1967 Alcohol intake: current Drinks per week: 6 Alcohol use details: glass of wine a day Substance use: never Substance use type: does not use Do You Feel Safe in your Home?: Yes Lack of Transportation: No Lack of Food: Never True Current Housing: I Have Housing Concerned About Future Housing: No Difficulty Paying Gas/Electric Bills: No Difficulty Paying for Meds: No Currently Unemployed: No Education: Associate Degree Difficulty w/ Childcare or Family Care: No Living arrangements: with family Additional living arrangements comments: Occupation/Education: retired Gender identity (if verbalized by the patient): Female Sexual Orientation (if Verbalized by the Patient): Straight or Heterosexual Spiritual care concerns: No Exam Narrative: GENERAL: [Well-appearing, well-nourished, and in no acute distress.] HEAD: [Normocephalic, atraumatic.] EYES: [PERRLA and EOMI.] No pain with ocular movement. ENT: Nares clear, no rhinorrhea or epistaxis. Mucous membranes moist. No trismus. She has some tenderness over the right zygoma with bruising overlying but no skin breakdown or laceration. NECK: Supple. CHEST: [Clear to auscultation. No respiratory distress.] HEART: [Regular rate and rhythm]. No murmur heard. [Normal peripheral pulses.] ABDOMEN: [Soft, nondistended], [nontender], [No rigidity or guarding] EXTREMITIES: Normal range of motion. [No edema.] Tenderness to palpation of the right ulnar aspect wrist, no step-offs deformities. Bruising noted to the ulnar wrist but no skin breakdown or laceration. Good j2ee android developer strength 5/5 st rength, able to oppose each digit and make a thumbs-up sign. SKIN: Warm, dry, no rash. NEURO: [No focal deficits]. Alert and oriented [x3.] PSYCH: [Normal mood and affect.] Course Vital Signs Vital signs: Vital Signs Temperature 36.6 C 01/01/25 20:48 Pulse Rate 77 01/01/25 20:48 Respiratory Rate 17 01/01/25 20:48 Blood Pressure 137/76 01/01/25 20:48 Pulse Oximetry 98 01/01/25 20:48 Oxygen Delivery Room Air 01/01/25 20:48 Temperature 36.8 C 01/01/25 21:34 Pulse Rate 75 01/01/25 21:34 Respiratory Rate 16 01/01/25 21:34 Blood Pressure 132/72 01/01/25 21:34 Pulse Oximetry 95 01/01/25 21:34 Oxygen Delivery Room Air 01/01/25 20:48 Procedures Orthopedic Splinting/Casting Injury #1: Splinting/Casting Date: 01/01/25 Splinting/Casting Time: 22:32 Side: right Upper Extremity Injury Location: hand Upper Extremity Immobilizer: ulnar gutter Splint: customized in ED Pre-Procedure Neuro Vascular Exam: normal Post-Procedure Neuro Vascular Exam: normal MDM - Fall MDM Narrative Medical decision making narrative: 69-year-old female presenting to the emergency department for a ground level mechanical fall. She tripped and fell on a curb and landed onto her right face and right wrist. She has some bruising over the right zygomatic arch without any step-offs deformities. No extraocular movement pain or restricted range of motion. She has some tenderness and swelling over the dorsal lateral right wrist on the ulnar aspect. Vital signs are all reassuring, 2+ radial pulses, able to oppose each digit and has full range of motion of the extremities. Suspicion presently is for potential contusion, boxer's fracture, ulnar fracture, zygomatic arch contusion versus fracture. CT of the facial bones without contrast an x-ray of the right wrist was obtained. Patient politely declined any analgesia at this time. Hand x-ray shows oblique fracture of the proximal right 5th metacarpal consiste nt with a boxer's fracture. Facial bones unremarkable. She was placed in an ulnar gutter splint with good neuro vasculature pre and post application and given orthopedics follow-up instructions as well as pain control medications. Patient safely discharged home at this time. Medical Records Attestation: I reviewed the patient's medical records. Imaging Data Attestation: I personally reviewed and interpreted this imaging study as follows: My impression: Impressions Wrist X-Ray 01/01/25 22:03 IMPRESSION: Possible oblique minimally displaced fracture of the proximal right fifth metacarpal. Face CT 01/01/25 22:07 IMPRESSION: No evidence of acute facial bone fracture. Discharge Plan Discharge Clinical Impression: Closed fracture of 5th metacarpal, Facial bruising Patient Disposition: Home Condition: Stable Instructions: Antibiotic Form, Hand Fracture (DC), Splint Care (ED), Boxer Fracture (ED) Additional Instructions: Your x-ray shows a minimally displaced fracture of the 5th metacarpal bone in the right hand. Your facial bones have no fractures and he likely just have some bruising. Take Tylenol and ibuprofen for aches and pains and follow-up with the provided field sales specialist when available. Return with any worsening pain or new concerns. Maintain the splint for comfort and appropriate position for healing of the fracture. Patient Language: Palestinian Prescriptions: New ibuprofen 800 mg tablet 800 mg PO TID PRN (Reason: pain) Qty: 30 0RF acetaminophen [Tylenol Extra Strength] 500 mg tablet 1,000 mg PO TID PRN (Reason: pain) Qty: 30 0RF No Action famotidine 20 mg tablet 20 mg PO DAILY omeprazole 20 mg capsule,delayed release(DR/EC) 20 mg PO BID 30 Days Qty: 60 3RF multivitamin [Daily Multi-Vitamin] Tablet 1 tablet PO DAILY Follow-up/Referrals: William,Daphnie Cummings DO [Primary Care Provider] - Lance Gallegos MD [Physician] - 1 Week (Proximal right 5th metacarpal fracture) Time of Disposition: 22:34
--- OUTSIDE RECORDS SUMMARY | 2025-01-01 21:46 | XMS_ITS | Clinical Summary ---
Author Organization [facility] Address [address] [place] [address] Care Team Providers Care Activity Aid Name Role Phone Daphnie Thomas DO Primary Care Provider [phone] Allergies Active Allergy Reactions Criticality Noted Date [...] food. Assessment & Plan (10/26/2024 4:33 PM DIE DEVELOPER): She is counseled to take ibuprofen with food as can be irritating to stomach lining. Deferring care at this time to oral surgeon. Nasal septal deviation 10/26/2024 Assessment & Plan (10/26/2024 4:35 PM DIE DEVELOPER): Continue following and plan of care with ENT. Post-nasal drainage 10/26/2024 Assessment & Plan (10/26/2024 4:35 PM DIE DEVELOPER): Continue following and plan of care with ENT Encounter for screening mamm ogram for malignant neoplasm of breast 10/26/2024 Overview (10/26/2024): 10/26/2024: Last mammogram completed in 2022. Assessment & Plan (10/26/2024 4:34 PM DIE DEVELOPER): Mammogram ordered to [facility]. Laryngopharyngeal reflux (LPR) 10/20/2024 Overview (10/26/2024): 10/26/2024: Noted by ENT on nasal endoscopy 10/20/2024 showing mild inflammation of the arytenoid cartilages consistent with LPR She started regimen recommended by ENT. She reports she is returning to be seen again by ENT November 27, 2024. Assessment & Plan (10/26/2024 4:35 PM DIE DEVELOPER): Continue regimen prescribed by ENT and follow with ENT. Pescetarian 09/28/2024 Overview (09/28/2024): 09/28/2024: She reports that she does not eat meat except for fish Decreased glomerular filtration rate (GFR) 08/17 Overview (08/17/2024): 07/20/2024 GFR ESTIMATE >90 ML/MIN/1.73 M2 83 Low Assessment & Plan (08/17/2024 4:16 PM DIE DEVELOPER): Results are communicated to patient and her previously communicated to patient through [employer] message. She is counseled that GFR is [...] daily. Assessment & Plan (07/20/2024 2:59 PM DIE DEVELOPER): Patient may be a good candidate for [...] values. Assessment & Plan (07/20/2024 12:47 PM DIE DEVELOPER): This patient is not on medication therapy, [...] lot. She states she has been taking bwse-bkl-nvpiyxf decongestant medication every night before bed. She [...] medication. Assessment & Plan (09/28/2024 1:51 PM DIE DEVELOPER): Continue pantoprazole daily at this time. Suspect patient may have LPR and would like to request referral to ENT as she may need a scope to help provide more accurate diagnosis. Assessment & Plan (08/17/2024 4:21 PM DIE DEVELOPER): Continue treating empirically for GERD. Suspect patient may have LPR if symptoms fail to improve and she may need referral to ENT. Assessment & Plan (07/20/2024 2:56 PM DIE DEVELOPER): I suspect this could be related to [...] a year. She reports she typically takes uqqr-ych-aspgfex Tums which do help. She denies vomiting. [...] symptoms. Assessment & Plan (09/28/2024 1:52 PM DIE DEVELOPER): Continue PPI at this time. Referral has been placed to ENT. Suspect LPR. Assessment & Plan (08/17/2024 4:19 PM DIE DEVELOPER): Will continue pantoprazole 40 mg once daily for an additional month and reevaluate symptoms. Will consider referral to ENT if not significantly improving. Assessment & Plan (07/20/2024 2:46 PM DIE DEVELOPER): I suspect that patient's reflux may be [...] when. Assessment & Plan (07/20/2024 2:58 PM DIE DEVELOPER): Patient is to continue Excedrin at this [...] 11/03/2024. Assessment & Plan (10/26/2024 4:32 PM DIE DEVELOPER): Awaiting scope and results from scope. Assessment & Plan (09/28/2024 1:49 PM DIE DEVELOPER): 09/28/2024: She had CT abdomen pelvis with [...] opinion. Assessment & Plan (08/17/2024 4:19 PM DIE DEVELOPER): Is communicated to patient that based on her age and the amount of RBCs present in her urine with negative urine culture, is recommended that we have CT urography performed and refer to urology. Patient is agreeable to this. Assessment & Plan (07/20/2024 2:57 PM DIE DEVELOPER): Urinalysis ordered. Status post ablation of atrial fibrillation 07/07 Overview (09/28/2024): Initial visit 07/20/2024: Patient reports she had an ablation for something in her heart in April 2005 and stated the phrase a fib . We need to request records for clarity. Patient is not currently on any medication therapy. She reports the last time she saw her child day care provider was approximately 2005. 09/28/2024: She reports she had ablation procedure by branch administrator at [facility] in [place], [place]. She reports she does not remember the name of physician provider. Assessment & Plan (09/28/2024 1:58 PM DIE DEVELOPER): Attempting to request records regarding this ablation. Assessment & Plan (07/20/2024 2:57 PM DIE DEVELOPER): Currently unsure of accurate diagnoses. We are [...] quitting. Assessment & Plan (07/20/2024 3:03 PM DIE DEVELOPER): She does not meet any lung cancer screening guidelines based on previous nicotine use. Encounters Date Type Department Care Team Description 11/28/2024 LocBox Labshart Message Enc [facility] Medical [facility] - [place] [address] [place] [address] Daphnie Thomas, DO Singles vaccine 11/27/2024 Scan [facility] SRVCS Scanned, Doc Med Group 11/01/2024 MyChart Message Enc [facility] [place] [address] [place] [address] Daphnie Thomas, DO Mammogram 10/30/2024 Telephone [facility] [address] [place] [address] Daphnie Thomas, DO Record Request 10/26/2024 2:20 PM DIE DEVELOPER Office Visit [facility] [address] [place] [address] Daphnie Thomas, DO Follow Up (Pt states she seen ENT 10/20/2023 @ [facility] sleep [facility] allergy /fátima Jeter Np) [...] Sex Assigned at Female 07/18/2024 3:10 PM DIE DEVELOPER Legal Sex Female 12:53 PM DIE DEVELOPER Gender Identity Female 07/18/2024 3:10 PM DIE DEVELOPER Sexual Orientation Straight 07/18/2024 3: 10 PM DIE DEVELOPER Last Filed Vital Signs Vital Sign Reading Time Taken Comments Blood Pressure 106/66 10/26/2024 2:40 PM DIE DEVELOPER Pulse 61 10/26/2024 2:40 PM DIE DEVELOPER Temperature 36.8 C (98.2 F) 10/26/2024 2:40 PM DIE DEVELOPER Respiratory Rate 16 10/26/2024 2:40 PM DIE DEVELOPER Oxygen Saturation 98% 10/26/2024 2:40 PM DIE DEVELOPER Inhaled Oxygen Concentration - - Weight 70.3 kg (155 lb) 10/26/2024 2:40 PM DIE DEVELOPER Height 162.6 cm (5' 4 ) 10/26/2024 2:40 PM DIE DEVELOPER Body Mass Index 26.61 10/26/2024 2:40 PM DIE DEVELOPER Plan of Treatment Upcoming Encounters Date Type Department Care Team (Late st Contact Info) Description 01/09/2025 10:40 AM CDT Office Visit [facility] [place] [address] [place] [address] Daphnie Thomas, DO [address] [place] [address] Health Maintenance Due Date Last Done Comments [...] or 60+ Years Completed 06/11/2023 PHQ-2 (Physician [facility] [place]) Completed 09/28/2024 Meningococcal B Vaccine Aged Out [...] Anatomical Region Laterality Modality Other 02/08/2024 [facility] Scanned SCANNING Final Resu lt * BONE DENSITY GENERIC (SCAN ORDER) (10/13/2021) Anatomical Region Laterality Modality Other 10/13/2021 us [facility] Scanned SCANNING Final Resu lt * COLONOSCOPY GENERIC (SCAN ORDER) (07/05/2019) 07/05/2019 us Doc [facility] Group Scanned SCANNING Final Resu lt from Last 3 Months or Most Recently Relevant to Health Maintenance Insurance MEDICARE [facility] [employer] Care Teams Activity Aid Relationship Specialty Start Date End Date Daphnie Thomas DO [address] [place] [address] PCP - General FAMILY PRACTICE 07/17/24
--- OUTSIDE RECORDS SUMMARY | 2025-01-01 21:46 | XMS_ITS | Encounter Summary ---
Author Organization [facility] Address [facility] [address] [place] [address] Care Team Providers Care Acoustical Installer Name Role Phone Daphnie Thomas DO Primary Care Provider [phone] Encounter Details Date Type Department Care Team (Late st Contact Info) Description 11/28/2024 MyChart Message Enc [facility] [address] [place] [address] Daphnie Thomas DO 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 [address] [place], [place] [id number] Daphnie Thomas DO [address] [place] [address] documented as of this encounter Visit Diagnoses Not on filedocumented in this encounter Additional Health Concerns Assessment Noted Time PHQ-9 Depression Total Score: 1 09/28/19 25 1:40 PM STEAMFITTER SUPERVISOR documented as of this encounter Care Teams Acoustical Installer Relationship Specialty Start Date End Date Daphnie Thomas DO [address] [place] [address] PCP - General FAMILY PRACTICE 07/17/24 documented as of this encounter
--- OUTSIDE RECORDS SUMMARY | 2025-01-01 21:46 | XMS_ITS | Clinical Summary ---
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
--- OUTSIDE RECORDS SUMMARY | 2025-01-01 21:46 | XMS_ITS | Clinical Summary ---
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
--- OUTSIDE RECORDS SUMMARY | 2025-01-01 21:46 | XMS_ITS | Continuity of Care Document ---
Author Organization [facility] Address [address] [place] [address] Phone Care Team Providers Care Leather Goods Sales Representative Name Role Phone [facility] Unavailable Unavail able Procedures Procedure Date Contact [...] Diagnoses Date Provider Providers Copied on Encounter [facility], [address], [place], [place], [id number], [place] tel:[phone] [facility] No Information 0 [facility] . [address], [address], [place], [place], [id number], [place]. tel:[phone] [facility], [address], [place], [place], [id number], [place] tel:[phone] [facility] No Information Oct-2 2-201 0 Hogan OD Jah. [address], [place], [place], [facility], . tel:[phone] [facility], [address] [place] [address] [address], [place], [place], [address], [place] tel:[phone] [facility] No Information Oct-0 7-201 0 Hogan OD Jah. [address] , [address], [place], [facility], [place]. tel:[phone] [facility], [address] [place] [address] [address], [place], [place], [address], [place] tel:[phone] [facility] No Information Aug-0 2-201 0 Hogan OD Jah. [address] , [address], [place], [facility], [place]. tel:[phone] [facility], [address] [place] [address] [address], [place], [place], [address], [place] tel:[phone] [facility] No Information May-0 5-201 0 Hogan OD Jah. [address] , [address], [place], [facility], [place]. tel:[phone] [facility], [address], [place], [place], [address], [place] tel:[phone] [facility] No Information Apr-2 2-201 0 Hogan OD Jah. [address] , [address], [place], [facility], [place]. tel:[phone] [facility], [address], [place], [place], [address], [place] tel:[phone] [facility] No Information Apr-1 5-201 0 Hogan OD Jah. [address] , [address], [place], [facility], [place]. tel:[phone] [facility], [address], [place], [place], [address], [place] tel:[phone] [facility] No Information Apr-0 1-201 0 Hogan OD Jah. [address] , [address], [place], [facility], [place]. tel:[phone] [facility], [address] [place] [address] [address], [place], [place], [id number], tel:[phone] [facility] No Information Mar-1 8-201 0 Hogan OD Jah. [address] , [address], [place], [facility], [place]. tel:[phone] [facility], [address] [place] [address] [address], [place], [place], [address], [place] tel:[phone] [facility] No Information Nov-0 6-200 9 Hogan OD Jah. [address] , [address], [place], [facility], [place]. tel:[phone] [facility], [address] [place] [address] [address], [place], [place], [address], [place] tel:[phone] [facility] No Information Oct-3 0-200 9 Hogan OD Jah. [address] , [address], [place], [facility], [place]. tel:[phone] [facility], [address], [place], [place], [address], [place] tel:[phone] [facility] No Information Oct-0 9-200 9 Hogan OD Jah. [address] , [address], [place], [address], [place]. tel:[phone] [facility], [address] [place] [address] [address], [place], [place], [address], [place] tel:[phone] [facility] No Information Oct-0 2-200 9 Hogan OD Jah. [address] [facility] , [address], [place], [address], [place]. tel:[phone] [facility], [address] [place] [address] [address], [place], [place], [id number], [place] tel:[phone] [facility] No Information Sep-2 4-200 9 [facility] . [address], [address], [place], [place], [address], . tel:[phone] Referring Provider: Jah Hogan OD A, [address] [place] [address], [place], [facility]. tel:[phone] sulting Provider: Andressa Garcia, [address] [place], [place], [facility]. tel:[phone] [facility], [address] [place] [address] [address], [place], [place], [address], [place] tel:[phone] [facility] No Information Sep-2 2-200 9 Hogan OD Jah. [facility] [address] Tsang, [address], [place], [address], [place]. tel:[phone] [facility], [address] [place] [address] [address], [place], [place], [id number], [place] tel:[phone] [facility] No Information Sep-1 1-200 9 Hogan OD Jah. [address] [facility] , [address], [place], [address], [place]. tel:[phone] Family History Family Member Type Diagnosis Age At Onset No Information Payers Payer name Insurance type Covered republican ID Authoriza tion(s) No Information Social History [...]
--- OUTSIDE RECORDS SUMMARY | 2025-01-01 21:46 | XMS_ITS | Encounter Summary ---
Author Organization [facility] Address 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 Gender Identity Not on file Sexual Orientation [...] ORDERABLES Final Resu lt Performing Organization Address [facility] Co de Phone Number INTERFACE SYSTEM Refer to clinic/hospital department * POC ACTIVATED CLOTTING TIME (03/27/2005 4:31 PM CDT) ACT POC 158 Seconds INTERFACE SYSTEM Comment: Normal Donors range 113-149 Non-heparin patients 89-169 ACT value for sheath pull at [facility] has been established to be [...] 89-169 ACT value for sheath pull at [facility] has been established to be < or = to 1 70. (See also Nursing Procedures for sheath pull in related nursing areas) 03/27/2005 3:48 PM CDT Historical Provider POINT OF CARE TESTING Final Result Performing Organization Address [facility] Phone Number INTERFACE SYSTEM Refer to clinic/hospital department * POC ACTIVATED CLOTTING TIME (03/27/2005 2:40 PM CDT) ACT POC 227 Seconds INTERFACE SYSTEM Comment: Normal Donors range 113-149 Non-heparin patients 89-169 ACT value for sheath pull at [facility] has been established to be < or = to 1 70. (See also Nursing Procedures for sheath pull in related nursing areas) 03/27/2005 2:40 PM CDT Historical Provider POINT OF CARE TESTING Final Result Performing Organization Address [facility] Phone Number INTERFACE SYSTEM Refer to clinic/hospital department * POC ACTIVATED CLOTTING TIME (03/27/2005 12:00 PM CDT) ACT POC 260 Seconds INTERFACE SYSTEM Comment: Normal Donors range 113-149 Non-heparin patients 89-169 ACT value for sheath pull at [facility] has been established to be < or = to 1 70. (See also Nursing Procedures for sheath pull in related nursing areas) 03/27/2005 12:0 0 PM CDT Historical Provider POINT OF CARE TESTING Final Result Performing Organization Address [facility] Phone Number INTERFACE SYSTEM Refer to clinic/hospital department * POC ACTIVATED CLOTTING TIME (03/27/2005 11:01 AM CDT) ACT POC 309 Seconds INTERFACE SYSTEM Comment: Normal Donors range 113-149 Non-heparin patients 89-169 ACT value for sheath pull at [facility] has been established to be < or = to 1 70. (See also Nursing Procedures for sheath pull in related nursing areas) 03/27/2005 11:0 1 AM CDT Historical Provider POINT OF CARE TESTING Final Result Performing Organization Address [facility] Phone Number INTERFACE SYSTEM Refer to clinic/hospital department * POC ACTIVATED CLOTTING TIME (03/27/2005 10:35 AM CDT) ACT POC 301 Seconds INTERFACE SYSTEM Comment: Normal Donors range 113-149 Non-heparin patients 89-169 ACT value for sheath pull at [facility] has been established to be < or = to 1 70. (See also Nursing Procedures for sheath pull in related nursing areas) 03/27/2005 10:3 5 AM CDT [facility] Provider POINT OF CARE TESTING Final Result Performing Organization Address [facility] Phone Number INTERFACE SYSTEM Refer to clinic/hospital department * POC ACTIVATED CLOTTING TIME (03/27/2005 9:59 AM CDT) ACT POC 369 Seconds INTERFACE SYSTEM Comment: Normal Donors range 113-149 Non-heparin patients 89-169 ACT value for sheath pull at [facility] has been established to be < or = to 1 70. (See also Nursing Procedures for sheath pull in related nursing areas) 03/27/2005 9:59 AM CDT Historical Provider POINT OF CARE TESTING Final Result Performing Organization Address [facility] Phone Number INTERFACE SYSTEM Refer to clinic/hospital department * POC ACTIVATED CLOTTING TIME (03/27/2005 9:47 AM CDT) ACT POC 252 Seconds INTERFACE SYSTEM Comment: Normal Donors range 113-149 Non-heparin patients 89-169 ACT value for sheath pull at [facility] has been established to be < or = to 1 70. (See also Nursing Procedures for sheath pull in related nursing areas) 03/27/2005 9:47 AM CDT [facility] Provider POINT OF CARE TESTING Final Result Performing Organization Address [facility] Phone Number INTERFACE SYSTEM Refer to clinic/hospital department * HCG QUALITATIVE, URINE (03/27/2005 6:12 AM CDT) HCG QUAL URINE Negative Negative INTER FACE SYSTEM SPECIFIC GRAVITY UA 1.020 1.001 - 1.035 INTERFACE SYSTEM 03/27/2005 6:12 AM CDT Lencho Wells URINE ORDERABLES Final Result Performing Organization Address [facility] Phone Number INTERFACE SYSTEM Refer to clinic/hospital [...] patients with mechanical heart valves or post [place]. Pediatric (12 years and under): 1.5 - [...] ORDERABLES Final Resu lt Performing Organization Address [facility] Phone Number INTERFACE SYSTEM Refer to clinic/hospital [...] ORDERABLES Final Resul t Performing Organization Address [facility] de Phone Number INTERFACE SYSTEM Refer to [...] ORDERABLES Final Resu lt Performing Organization Address [facility] Phone Number INTERFACE SYSTEM Refer to clinic/hospital [...] fibrillation documented in this encounter Care Teams Twisthand Relationship Specialty Start Date End Date Sarina Ryan MD [address] [place] [address] PCP - General 03/27/05 documented as of this encounter
--- OUTSIDE RECORDS SUMMARY | 2025-01-01 21:46 | XMS_ITS | Referral Summary ---
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
--- OUTSIDE RECORDS SUMMARY | 2025-01-01 21:46 | XMS_ITS | Clinical Summary ---
Author Organization [facility] Address [address] [facility] Attn: Epic Prelude ADT MICKY CAO [address] Care Team Providers Care Analysis Consultant Name Role Phone Sarina Ryan MD Primary Care Provider [phone] Medications meloxicam (MOBIC) 15 mg tablet Take [...] on file Legal Sex Male 5:03 AM HAND SLITTER Gender Identity Not on file Sexual Orientation [...] (1 - 1-dose 75+ series) 2029 Insurance [address] [address] RX ALLWIN DATA Medicare Part B RX [employer] (INTERNAL) [facility] RX [employer] Commercial Care Teams Analysis Consultant Relationship Specialty Start Date End Date Sarina Ryan MD [address] [place] [id number] PCP - General 03/27/05
--- OUTSIDE RECORDS SUMMARY | 2025-01-01 21:46 | XMS_ITS | Encounter Summary ---
Author Organization [facility] Address [facility] [place] [address] Care Team Providers Care Office Machinery Or Equipment Installer Name Role Phone Daphnie Thomas DO Primary Care Provider [phone] Encounter Details Date Type Department Care Team (Late st Contact Info) Description 11/01/2024 [facility] [address] [place], [place] [id number] Daphnie Thomas DO [address] [place] [address] Mammogram Social History Tobacco Use Types Packs/Day [...] Sex Assigned at Female 07/18/2024 3:10 PM RELOCATION DIRECTOR Legal Sex Female 12:53 PM RELOCATION DIRECTOR Gender Identity Female 07/18/2024 3:10 PM RELOCATION DIRECTOR Sexual Orientation Straight 07/18/2024 3: 10 PM RELOCATION DIRECTOR documented as of this encounter Plan of Treatment Upcoming Encounters Date Type Department Care Team (Late st Contact Info) Description 01/09/2025 10:40 AM CDT [facility] [address] [place] [address] Daphnie Thomas DO [address] [place] [address] documented as of this encounter Visit Diagnoses Not on filedocumented in this encounter Additional Health Concerns Assessment Noted Time PHQ-9 Depression Total Score: 1 09/28/19 25 1:40 PM RELOCATION DIRECTOR documented as of this encounter Care Teams Office Machinery Or Equipment Installer Relationship Specialty Start Date End Date Daphnie Thomas DO [address] [place] [address] PCP - General FAMILY PRACTICE 07/17/24 documented as of this encounter
[2025-01-01 23:22] VITALS: BP 135/77; PULSE 70; RESP 16; O2SAT 95
== END 2025-01-01 23:10 | disposition home or self-care (01) ==
PROVIDERS: Emergency Provider Student in an Organized Health Care Education/Training Program; PCP Family Medicine
DX: S00.83XA Contusion of other part of head, initial encounter (principal); S62.316A Displaced fracture of base of fifth metacarpal bone, right hand, initial encounter for closed fracture; Z87.891 Personal history of nicotine dependence; W10.1XXA Fall (on)(from) sidewalk curb, initial encounter
CPT/HCPCS: 29125; 70486; 73110; 99284

== ENCOUNTER 2025-01-10 01:47 | Day surgery (SDC) | payer MEDICARE, SELFPAY ==
[2024-12-27 10:41] VITALS: BMI 25.2
--- OUTSIDE RECORDS SUMMARY | 2025-01-10 01:51 | XMS_ITS | Encounter Summary ---
Author Organization [facility] Address [facility] [place] [address] Care Team Providers Care Wireless Sales Associate Name Role Phone Daphnie Thomas DO Primary Care Provider Encounter Details Date Type Department Care Team (Late st Contact Info) Description 11/01/2024 MyChart Message [facility] [address] [place], [place] [id number] Daphnie Thomas DO [address] [place], [place] [id number] Mammogram Social History Tobacco Use Types Packs/Day [...] Sex Assigned at Female 07/18/2024 3:10 PM PARAFFIN PLANT OPERATOR Legal Sex Female 12:53 PM PARAFFIN PLANT OPERATOR Gender Identity Female 07/18/2024 3:10 PM PARAFFIN PLANT OPERATOR Sexual Orientation Straight 07/18/2024 3: 10 PM PARAFFIN PLANT OPERATOR documented as of this encounter Plan of Treatment Upcoming Encounters Date Type Department Care Team (Late st Contact Info) Description 01/18/2025 11:20 AM CDT [facility] [address] [place] [address] Daphnie Thomas DO [address] [place] [address] documented as of this encounter Visit Diagnoses Not on filedocumented in this encounter Additional Health Concerns Assessment Noted Time PHQ-9 Depression Total Score: 1 09/28/19 25 1:40 PM PARAFFIN PLANT OPERATOR documented as of this encounter Care Teams Wireless Sales Associate Relationship Specialty Start Date End Date Daphnie Thomas DO [address] [place] [address] PCP - General FAMILY PRACTICE 07/17/24 documented as of this encounter
--- OUTSIDE RECORDS SUMMARY | 2025-01-10 01:51 | XMS_ITS | Clinical Summary ---
Author Organization [facility] Address [address] [place] [address] Care Team Providers Care Veneer Drier Tailer Name Role Phone Daphnie Thomas DO Primary Care Provider [phone] Allergies Active Allergy Reactions Criticality Noted Date [...] food. Assessment & Plan (10/26/2024 4:33 PM ELECTRONIC COILS SUPERVISOR): She is counseled to take ibuprofen with food as can be irritating to stomach lining. Deferring care at this time to oral surgeon. Nasal septal deviation 10/26/2024 Assessment & Plan (10/26/2024 4:35 PM ELECTRONIC COILS SUPERVISOR): Continue following and plan of care with ENT. Post-nasal drainage 10/26/2024 Assessment & Plan (10/26/2024 4:35 PM ELECTRONIC COILS SUPERVISOR): Continue following and plan of care with ENT Encounter for screening mamm ogram for malignant neoplasm of breast 10/26/2024 Overview (10/26/2024): 10/26/2024: Last mammogram completed in 2022. Assessment & Plan (10/26/2024 4:34 PM ELECTRONIC COILS SUPERVISOR): Mammogram ordered to [facility]. Laryngopharyngeal reflux (LPR) 10/20/2024 Overview (10/26/2024): 10/26/2024: Noted by ENT on nasal endoscopy 10/20/2024 showing mild inflammation of the arytenoid cartilages consistent with LPR She started regimen recommended by ENT. She reports she is returning to be seen again by ENT November 27, 2024. Assessment & Plan (10/26/2024 4:35 PM ELECTRONIC COILS SUPERVISOR): Continue regimen prescribed by ENT and follow with ENT. Pescetarian 09/28/2024 Overview (09/28/2024): 09/28/2024: She reports that she does not eat meat except for fish Decreased glomerular filtration rate (GFR) 08/17 Overview (08/17/2024): 07/20/2024 GFR ESTIMATE >90 ML/MIN/1.73 M2 83 Low Assessment & Plan (08/17/2024 4:16 PM ELECTRONIC COILS SUPERVISOR): Results are communicated to patient and her previously communicated to patient through magnify360 message. She is counseled that GFR is [...] daily. Assessment & Plan (07/20/2024 2:59 PM ELECTRONIC COILS SUPERVISOR): Patient may be a good candidate for [...] values. Assessment & Plan (07/20/2024 12:47 PM ELECTRONIC COILS SUPERVISOR): This patient is not on medication therapy, [...] lot. She states she has been taking aiyw-cnm-kszqdsr decongestant medication every night before bed. She [...] medication. Assessment & Plan (09/28/2024 1:51 PM ELECTRONIC COILS SUPERVISOR): Continue pantoprazole daily at this time. Suspect patient may have LPR and would like to request referral to ENT as she may need a scope to help provide more accurate diagnosis. Assessment & Plan (08/17/2024 4:21 PM ELECTRONIC COILS SUPERVISOR): Continue treating empirically for GERD. Suspect patient may have LPR if symptoms fail to improve and she may need referral to ENT. Assessment & Plan (07/20/2024 2:56 PM ELECTRONIC COILS SUPERVISOR): I suspect this could be related to [...] a year. She reports she typically takes mwdr-eby-bywvvcv Tums which do help. She denies vomiting. [...] symptoms. Assessment & Plan (09/28/2024 1:52 PM ELECTRONIC COILS SUPERVISOR): Continue PPI at this time. Referral has been placed to ENT. Suspect LPR. Assessment & Plan (08/17/2024 4:19 PM ELECTRONIC COILS SUPERVISOR): Will continue pantoprazole 40 mg once daily for an additional month and reevaluate symptoms. Will consider referral to ENT if not significantly improving. Assessment & Plan (07/20/2024 2:46 PM ELECTRONIC COILS SUPERVISOR): I suspect that patient's reflux may be [...] when. Assessment & Plan (07/20/2024 2:58 PM ELECTRONIC COILS SUPERVISOR): Patient is to continue Excedrin at this [...] 11/03/2024. Assessment & Plan (10/26/2024 4:32 PM ELECTRONIC COILS SUPERVISOR): Awaiting scope and results from scope. Assessment & Plan (09/28/2024 1:49 PM ELECTRONIC COILS SUPERVISOR): 09/28/2024: She had CT abdomen pelvis with [...] opinion. Assessment & Plan (08/17/2024 4:19 PM ELECTRONIC COILS SUPERVISOR): Is communicated to patient that based on her age and the amount of RBCs present in her urine with negative urine culture, is recommended that we have CT urography performed and refer to urology. Patient is agreeable to this. Assessment & Plan (07/20/2024 2:57 PM ELECTRONIC COILS SUPERVISOR): Urinalysis ordered. Status post ablation of atrial fibrillation 07/07 Overview (09/28/2024): Initial visit 07/20/2024: Patient reports she had an ablation for something in her heart in April 2005 and stated the phrase a fib . We need to request records for clarity. Patient is not currently on any medication therapy. She reports the last time she saw her construction sales manager was approximately 2005. 09/28/2024: She reports she had ablation procedure by vocational horticulture instructor at [facility] in [place], [place]. She reports she does not remember the name of physician provider. Assessment & Plan (09/28/2024 1:58 PM ELECTRONIC COILS SUPERVISOR): Attempting to request records regarding this ablation. Assessment & Plan (07/20/2024 2:57 PM ELECTRONIC COILS SUPERVISOR): Currently unsure of accurate diagnoses. We are [...] quitting. Assessment & Plan (07/20/2024 3:03 PM ELECTRONIC COILS SUPERVISOR): She does not meet any lung cancer screening guidelines based on previous nicotine use. Encounters Date Type Department Care Team Description 12/25/2024 Scan Gabstr INFO SRVCS Scanned, Doc [facility] 11/28/2024 [facility] [place] [address] [place] [address] Daphnie Thomas, DO Singles vaccine 11/27/2024 Scan [facility] INFO SRVCS Scanned, Doc [facility] 11/01/2024 MyChart Message Enc [place] [address] [place] [address] Daphnie Thomas, DO Mammogram 10/30/2024 Telephone [place] [address] [place] [address] Daphnie Thomas, DO Record Request 10/26/2024 2:20 PM ELECTRONIC COILS SUPERVISOR Office Visit [place] [address] [place] [address] Daphnie Thomas, DO Follow Up (Pt states she seen ENT 10/20/2023 @ [facility] /fátima Jeter Np) [...] Sex Assigned at Female 07/18/2024 3:10 PM ELECTRONIC COILS SUPERVISOR Legal Sex Female 12:53 PM ELECTRONIC COILS SUPERVISOR Gender Identity Female 07/18/2024 3:10 PM ELECTRONIC COILS SUPERVISOR Sexual Orientation Straight 07/18/2024 3: 10 PM ELECTRONIC COILS SUPERVISOR Last Filed Vital Signs Vital Sign Reading Time Taken Comments Blood Pressure 106/66 10/26/2024 2:40 PM ELECTRONIC COILS SUPERVISOR Pulse 61 10/26/2024 2:40 PM ELECTRONIC COILS SUPERVISOR Temperature 36.8 C (98.2 F) 10/26/2024 2:40 PM ELECTRONIC COILS SUPERVISOR Respiratory Rate 16 10/26/2024 2:40 PM ELECTRONIC COILS SUPERVISOR Oxygen Saturation 98% 10/26/2024 2:40 PM ELECTRONIC COILS SUPERVISOR Inhaled Oxygen Concentration - - Weight 70.3 kg (155 lb) 10/26/2024 2:40 PM ELECTRONIC COILS SUPERVISOR Height 162.6 cm (5' 4 ) 10/26/2024 2:40 PM ELECTRONIC COILS SUPERVISOR Body Mass Index 26.61 10/26/2024 2:40 PM ELECTRONIC COILS SUPERVISOR Plan of Treatment Upcoming Encounters Date Type Department Care Team (Late st Contact Info) Description 01/18/2025 11:20 AM CDT Office Visit [facility] [place] [address] [place] [address] Daphnie Thomas, DO [address] [place] [address] Health Maintenance Due Date Last Done Comments [...] or 60+ Years Completed 06/11/2023 PHQ-2 (Physician [place]) Completed 09/28/2024 Meningococcal B Vaccine Aged Out [...] Anatomical Region Laterality Modality Other 02/08/2024 [facility] Scanned SCANNING Final Resu lt * BONE DENSITY GENERIC (SCAN ORDER) (10/13/2021) Anatomical Region Laterality Modality Other 10/13/2021 [facility] Scanned SCANNING Final Resu lt * COLONOSCOPY GENERIC (SCAN ORDER) (07/05/2019) 07/05/2019 [facility] Scanned SCANNING Final Resu lt from Last 3 Months or Most Recently Relevant to Health Maintenance Insurance MEDICARE [facility] LIFE INSURANCE Care Teams Veneer Drier Tailer Relationship Specialty Start Date End Date Daphnie Thomas DO [address] [place] [address] PCP - General FAMILY PRACTICE 07/17/24
--- OUTSIDE RECORDS SUMMARY | 2025-01-10 01:51 | XMS_ITS | Clinical Summary ---
Author Organization [facility] Address [address] 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 Gender Identity Not on file Sexual Orientation Not on file Plan of Treatment Health Maintenance Due Date Last Done Comments DTAP/TDAP/TD VACCINES (1 - Tdap) 1973 COLORECTAL SCREENING 1999 Colorectal Cancer Screening 1999 FIT-DNA Q 3 years 1999 FIT/FOBT Q 1 year 1999 Flex Sig/CT Colonography Q 5 years 1999 PNEUMOCOCCAL VACCINE 50+ YEARS (1 of 1 - PCV) 09/10/19 ZOSTER VACCINE (2 of 2) 09/17/2022 07/23/2022 INFLUENZA VACCINE (#1) 2024 06/22/2022 RSV VACCINE (60+ or ) (1 - 1-dose 75+ series) 2029 Insurance RX ALLWIN DATA Medicare Part B RX [employer] (INTERNAL) [facility] RX [employer] Commercial Care Teams Cnc Lathe Machine Operator Relationship Specialty Start Date End Date Sarina Ryan MD [address] [place] [address] [facility] - General 03/27/05
--- OUTSIDE RECORDS SUMMARY | 2025-01-10 01:51 | XMS_ITS | Clinical Summary ---
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
--- OUTSIDE RECORDS SUMMARY | 2025-01-10 01:51 | XMS_ITS | Clinical Summary ---
Author Organization [facility] Address [address] [place] [address] Care Team Providers Care Applications Systems Engineer Name Role Phone Daphnie Thomas Primary Care Provider No, Physician Unavailable Allergies Active Allergy Reactions Criticality Noted Date Comments Alcohol-Propylene Glycol Hives Medium 09/27/2008 Medications azelastine (ASTELIN) 137 mcg (0.1 %) nasal spray Administer 1 spray into affected nostril(s) 2 (two) times a day 5 Active famotidine (PEPCID) 20 mg tablet Take 1 tablet (20 mg total) by mouth nightly 5 Active ibuprofen (ADVIL,MOTRIN) 800 mg tablet Take 1 tablet (800 mg total) by mouth every 8 (eight) hours as needed 5 Active omeprazole (PriLOSEC) 20 mg capsule 5 Active methocarbamoL (ROBAXIN) 500 mg tablet Take 2 tablets (1,000 mg total) by mouth nightly Active Active Problems Problem Noted Date Diagnosed Date Nasal septal deviation 10/26/2024 Post-nasal drainage 10/26/2024 TMJ (temporomandibular joint disorder) 5 Overview (01/03/2025): 10/26/2024: She reports she recently saw oral surgeon Nael Rudolph for TMJ pain in her right jaw that started in June 2024. She reports he started her on muscle relaxer to take at nighttime and ibuprofen 80 mg tablet 3 times daily for 14 days. She reports she is taking ibuprofen with food. Laryngopharyngeal reflux (LPR) 10/20/2024 Overview (01/03/2025): 10/26/2024: Noted by ENT on nasal endoscopy 10/20/2024 showing mild inflammation of the arytenoid cartilages consistent with LPR She started regimen recommended by ENT. She reports she is returning to be seen again by ENT November 27, 2024. Decreased glomerular filtration rate (GFR) 08/17 Overview (01/03/2025): 07/20/2024 GFR ESTIMATE >90 ML/MIN/1.73 M2 83 Low Asymptomatic microscopic hematuria 07/20/2024 Overview (01/03/2025): Initial visit: Patient reports she always has [...] has scope with urology scheduled for 11/03/2024. Chronic throat clearing 07/20/2024 Overview (01/03/2025): Initial visit: Reports she had an illness [...] lot. She states she has been taking lvnh-rjs-qfytspu decongestant medication every night before bed. She [...] in chronic throat clearing since starting medication. Gastroesophageal reflux disease 07/20/2024 Overview (01/03/2025): Initial visit: Reports she has acid reflux symptoms several times a year. She reports she typically takes ueab-ate-hekugcx Tums which do help. She denies vomiting. [...] take a Tums to help with symptoms. Intractable episodic headache 07/20/2024 Overview (01/03/2025): Patient reports she has headaches/migraine headaches often times for 3 or so days at a time. She reports she does not often take medication however will occasionally take Excedrin Migraine. She reports she has been given prescription medication the past however is unsure of name and when. Mixed hyperlipidemia 07/20/2024 Overview (01/03/2025): Patient shows lipid panel results from 10/06/2023 Total cholesterol: 214 HDL cholesterol: 77 LDL cholesterol: 120 She reports this is improved from previous lipid panel in 2022. She reports she was offered medication in the past however did not take it. She reports she was told in the past that her high HDL outweighs the other cholesterol values. Nicotine dependence, cigarettes, in remission Overview (01/03/2025): Patient reports smoking for approximately 2 years and subsequently quitting. Status post left knee replacement 07/20/2024 Overview (01/03/2025): Patient reports surgery April 2010 Arthritis 07/20/2024 Overview (01/03/2025): Patient reports she has back pain and arthritis in ankles and knees. She reports she has taken meloxicam in the past as needed with no significant relief. She reports taking Tylenol arthritis at nighttime daily. Encounters Date Type Department Care Team Description 01/03/2025 11:00 AM CDT Therapy [facility] Occupational Therapy [address] [place] [address] 6th [place] [address] [place] [address] Andie Mojica OT Closed nondisplaced fracture of base of fifth metacarpal bone of right hand with routine healing, subsequent encounter (Primary Dx) 01/03/2025 9:50 AM CDT Office Visit [facility] Orthopaedic Surgery [address] [place] [address] 6th [place] [address] [place] [address] Scott Thornton MD Closed nondisplaced fracture of base of fifth metacarpal bone of right hand with routine healing, subsequent encounter (Primary Dx) 01/03/2025 Orders Only [facility] HAND/WRIST Scanning, Provider 01/03/2025 Plan of Care Documentation [facility] Occupational Therapy [address] [place] [address] 6th [place] [address] [place] [address] from Last 3 Months Surgical History Surgery Date Site/Laterality Comments JOINT REPLACEMENT 04/2010 SECTION 02/12/88 CATARACT EXTRACTION 08/2023 Medical History Medical History Date Comments Migraines 2014 Family History Medical History Relation Name Comments Cancer Brother Cancer Father Stroke Mother Relation Name Status Comments Brother Father Mother 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 Gender Identity Not on file Sexual Orientation Not on file Obstetrics History Last Filed Vital Signs Vital Sign Reading Time Taken Comments Blood Pressure - - Pulse - - Temperature - - Respiratory Rate - - Oxygen Saturation - - Inhaled Oxygen Concentration - - Weight 67.1 kg (148 lb) 01/03/2025 10:06 AM CDT Height 162.6 cm (5' 4 ) 01/03/2025 10:06 AM CDT Body Mass Index 25.4 01/03/2025 10:06 AM CDT Plan of Treatment Health Maintenance Due Date Last Done Comments Breast Cancer Screening-Mammogram 1954 Colon Cancer Screening-Colonoscopy 1954 Depression Screening 1954 Fall Risk Assessment 1954 Hepatitis C Screening 1954 Osteoporosis Screening-Bone Density Scan 1954 DTaP/Tdap/Td Vaccine (1 - Tdap) 1965 Hepatitis B Screening 1972 Pneumococcal vaccine 65+ (1 of 1 - PCV) 2004 Well Visit 65+ 2019 Covid-19 Vaccine (4 - 2023-2 5 season) 2024 07/21/2021, 07/21/2021, 11/07/2020, Additional history exists Zoster Vaccine Completed 09/18/2022, 07/23/2022 Influenza Vaccine Completed 06/18/2024, , 07/15/2015 Procedures Procedure Name Priority Date/Time Associated Diagnosis Comments SCAN - RADIOLOGY/IMAGING 01/03/2025 from Last 3 Months Results * SCAN - RADIOLOGY/IMAGING (01/03/2025) Anatomical Region Laterality Modality Other us Provider Scanning Final Result from Last 3 Months Insurance MEDICARE COMMERCIAL GENERIC MEDICARE COMMERCIAL GENERIC Care Teams Applications Systems Engineer Relationship Specialty Start Date End Date Daphnie Thomas DO [address] [place] [address] PCP - General Family Medicine 01/03/25 No, Physician 01/03/25
--- OUTSIDE RECORDS SUMMARY | 2025-01-10 01:51 | XMS_ITS | Referral Summary ---
Author Organization [facility] Address [address] [place] [address] Care Team Providers Care Cardiovascular Operating Room Nurse Name Role Phone Daphnie Thomas DO Primary Care Provider No, Physician Unavailable Encounters Date Type Department Care Team Description 01/03/2025 Orders Only [facility] HAND/WRIST Scanning, Provider 01/03/2025 Plan of Care Documentation [facility] Occupational Therapy [address] [place] [address] [address] [place] [address] [place] [address] 01/03/2025 11:00 AM CDT Therapy [facility] Occupational Therapy [address] [place] [address] [address]th [place] [address] [place] [address] Andie Mojica OT Closed nondisplaced fracture of base of fifth metacarpal bone of right hand with routine healing, subsequent encounter (Primary Dx) 01/03/2025 9:50 AM CDT Office Visit [facility] Orthopaedic Surgery [address] [place] [address] [address]th [place] [address] [place] [address] Scott Thornton MD Closed nondisplaced fracture of base of fifth metacarpal bone of right hand with routine healing, subsequent encounter (Primary Dx) from Last 3 Months Allergies Active Allergy Reactions Criticality Noted Date [...] lot. She states she has been taking btgh-rfe-pzpqvpq decongestant medication every night before bed. She [...] a year. She reports she typically takes lijs-ldd-tqujebv Tums which do help. She denies vomiting. [...] reports taking Tylenol arthritis at nighttime daily. 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 Gender Identity Not on file Sexual Orientation Not on file Last Filed Vital Signs Vital Sign Reading Time Taken Comments Blood Pressure - - Pulse - - Temperature - - Respiratory Rate - - Oxygen Saturation - - Inhaled Oxygen Concentration - - Weight 67.1 kg (148 lb) 01/03/2025 10:06 AM CDT Height 162.6 cm (5' 4 ) 01/03/2025 10:06 AM CDT Body Mass Index 25.4 01/03/2025 10:06 AM CDT Plan of Treatment Not on file Procedures Procedure Name Priority Date/Time Associated Diagnosis Comments SCAN - RADIOLOGY/IMAGING 01/03/2025 from Last 3 Months Results * SCAN - RADIOLOGY/IMAGING (01/03/2025) Anatomical Region Laterality Modality Other Provider Scanning Final Result from Last 3 Months Insurance MEDICARE [employer] GENERIC MEDICARE COMMERCIAL GENERIC Care Teams Cardiovascular Operating Room Nurse Relationship Specialty Start Date End Date Daphnie Thomas DO [address] [place] [address] PCP - General Family Medicine 01/03/25 No, Physician 01/03/25
--- OUTSIDE RECORDS SUMMARY | 2025-01-10 01:51 | XMS_ITS | Encounter Summary ---
Author Organization [facility] Address 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 ANALYST Gender Identity Not on file Sexual Orientation [...] ORDERABLES Final Resu lt Performing Organization Address City[facility] Co de Phone Number INTERFACE SYSTEM Refer to clinic/hospital department * POC ACTIVATED CLOTTING TIME (03/27/2005 4:31 PM CDT) ACT POC 158 Seconds INTERFACE SYSTEM Comment: Normal Donors range 113-149 Non-heparin patients 89-169 ACT value for sheath pull at [facility] has been established to be < or [...] 89-169 ACT value for sheath pull at [facility] has been established to be < or = to 1 70. (See also Nursing Procedures for sheath pull in related nursing areas) 03/27/2005 3:48 PM CDT Historical Provider POINT OF CARE TESTING Final Result Performing Organization Address [facility] Phone Number INTERFACE SYSTEM Refer to clinic/hospital department * POC ACTIVATED CLOTTING TIME (03/27/2005 2:40 PM CDT) ACT POC 227 Seconds INTERFACE SYSTEM Comment: Normal Donors range 113-149 Non-heparin patients 89-169 ACT value for sheath pull at [facility] has been established to be < or = to 1 70. (See also Nursing Procedures for sheath pull in related nursing areas) 03/27/2005 2:40 PM CDT Historical Provider POINT OF CARE TESTING Final Result Performing Organization Address [facility] Phone Number INTERFACE SYSTEM Refer to clinic/hospital department * POC ACTIVATED CLOTTING TIME (03/27/2005 12:00 PM CDT) ACT POC 260 Seconds INTERFACE SYSTEM Comment: Normal Donors range 113-149 Non-heparin patients 89-169 ACT value for sheath pull at [facility] has been established to be < or = to 1 70. (See also Nursing Procedures for sheath pull in related nursing areas) 03/27/2005 12:0 0 PM CDT Historical Provider POINT OF CARE TESTING Final Result Performing Organization Address [facility] Phone Number INTERFACE SYSTEM Refer to clinic/hospital department * POC ACTIVATED CLOTTING TIME (03/27/2005 11:01 AM CDT) ACT POC 309 Seconds INTERFACE SYSTEM Comment: Normal Donors range 113-149 Non-heparin patients 89-169 ACT value for sheath pull at [facility] has been established to be < or = to 1 70. (See also Nursing Procedures for sheath pull in related nursing areas) 03/27/2005 11:0 1 AM CDT Historical Provider POINT OF CARE TESTING Final Result Performing Organization Address [facility] Phone Number INTERFACE SYSTEM Refer to clinic/hospital department * POC ACTIVATED CLOTTING TIME (03/27/2005 10:35 AM CDT) ACT POC 301 Seconds INTERFACE SYSTEM Comment: Normal Donors range 113-149 Non-heparin patients 89-169 ACT value for sheath pull at [facility] has been established to be < or = to 1 70. (See also Nursing Procedures for sheath pull in related nursing areas) 03/27/2005 10:3 5 AM CDT [facility] Provider POINT OF CARE TESTING Final Result Performing Organization Address [facility] Phone Number INTERFACE SYSTEM Refer to clinic/hospital department * POC ACTIVATED CLOTTING TIME (03/27/2005 9:59 AM CDT) ACT POC 369 Seconds INTERFACE SYSTEM Comment: Normal Donors range 113-149 Non-heparin patients 89-169 ACT value for sheath pull at [facility] has been established to be < or = to 1 70. (See also Nursing Procedures for sheath pull in related nursing areas) 03/27/2005 9:59 AM CDT Historical Provider POINT OF CARE TESTING Final Result Performing Organization Address [facility] Phone Number INTERFACE SYSTEM Refer to clinic/hospital department * POC ACTIVATED CLOTTING TIME (03/27/2005 9:47 AM CDT) ACT POC 252 Seconds INTERFACE SYSTEM Comment: Normal Donors range 113-149 Non-heparin patients 89-169 ACT value for sheath pull at [facility] has been established to be < or = to 1 70. (See also Nursing Procedures for sheath pull in related nursing areas) 03/27/2005 9:47 AM CDT [facility] Provider POINT OF CARE TESTING Final Result Performing Organization Address [facility] Phone Number INTERFACE SYSTEM Refer to clinic/hospital department * HCG QUALITATIVE, URINE (03/27/2005 6:12 AM CDT) HCG QUAL URINE Negative Negative INTER FACE SYSTEM SPECIFIC GRAVITY UA 1.020 1.001 - 1.035 INTERFACE SYSTEM 03/27/2005 6:12 AM CDT Lencho Wells URINE ORDERABLES Final Result Performing Organization Address [facility] Phone Number INTERFACE SYSTEM Refer to clinic/hospital [...] patients with mechanical heart valves or post [place]. Pediatric (12 years and under): 1.5 - [...] ORDERABLES Final Resu lt Performing Organization Address [facility] Phone Number INTERFACE SYSTEM Refer to clinic/hospital [...] ORDERABLES Final Resul t Performing Organization Address City/[facility] de Phone Number INTERFACE SYSTEM Refer [...] ORDERABLES Final Resu lt Performing Organization Address [facility] Phone Number INTERFACE SYSTEM Refer to clinic/hospital [...] fibrillation documented in this encounter Care Teams Upholstery Bundler Relationship Specialty Start Date End Date Sarina Ryan MD [address] [place] [address] PCP - General 03/27/05 documented as of this encounter
--- OUTSIDE RECORDS SUMMARY | 2025-01-10 01:51 | XMS_ITS | Encounter Summary ---
Author Organization [facility] Address [facility] [place] [address] Care Team Providers Care Design Assistant Name Role Phone Daphnie Thomas DO Primary Care Provider [phone] Encounter Details Date Type Department Care Team (Late st Contact Info) Description 11/28/2024 [facility] [address] [place] [address] Daphnie Thomas DO 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 [place], [place] [id number] Daphnie Thomas DO [address] [place] [address] documented as of this encounter Visit Diagnoses Not on filedocumented in this encounter Additional Health Concerns Assessment Noted Time PHQ-9 Depression Total Score: 1 09/28/19 25 1:40 PM MEDICAL OFFICE WORKER documented as of this encounter Care Teams Design Assistant Relationship Specialty Start Date End Date Daphnie Thomas DO [address] [place] [address] PCP - General FAMILY PRACTICE 07/17/24 documented as of this encounter
--- OUTSIDE RECORDS SUMMARY | 2025-01-10 01:51 | XMS_ITS | Continuity of Care Document ---
Author Organization [facility] [place] Address [address] [place] [address] Phone Care Team Providers Care Chute Puller Name Role Phone [facility] Unavailable Unavail able Procedures Procedure Date Contact [...] Diagnoses Date Provider Providers Copied on Encounter [facility], [address], [place], [place], [address], [place] tel:[phone] [facility] No Information 0 [facility] . [address], [address], [place], [place], [address], [place]. tel:[phone] [facility], [address], [place], [place], [address], [place] tel:[phone] [facility] No Information Oct-2 2-201 0 Hogan OD Jah. [address] , [address], [place], [place], [facility], . tel:[phone] [facility], [address] [place] [address] [address], [place], [place], [address], [place] tel:[phone] [facility] No Information Oct-0 7-201 0 Hogan OD Jah. [address] , [address], [place], [place], [facility], [place]. tel:[phone] [facility], [address] [place] [address] [address], [place], [place], [address], [place] tel:[phone] [facility] No Information Aug-0 2-201 0 Hogan OD Jah. [address] , [address], [place], [place], [facility], [place]. tel:[phone] [facility], [address] [place] [address] [address], [place], [place], [address], [place] tel:[phone] [facility] No Information May-0 5-201 0 Hogan OD Jah. [address] , [address], [place], [place], [facility], [place]. tel:[phone] [facility], [address], [place], [place], [address], [place] tel:[phone] [facility] No Information Apr-2 2-201 0 Hogan OD Jah. [address] , [address], [place], [facility], [place]. tel:[phone] [facility], [address], [place], [place], [address], [place] tel:[phone] [facility] No Information Apr-1 5-201 0 Hogan OD Jah. [address] , [address], [place], [facility], [place]. tel:[phone] [facility], [address], [place], [place], [address], [place] tel:[phone] [facility] No Information Apr-0 1-201 0 Hogan OD Jah. [address] , [address], [place], [facility], [place]. tel:[phone] [facility], [address] [place] [address] [address], [place], [place], [address], tel:[phone] [facility] No Information Mar-1 8-201 0 Hogan OD Jah. [address] , [address], [place], [facility], [place]. tel:[phone] [facility], [address] [place] [address] [address], [place], [place], [address], [place] tel:[phone] [facility] No Information Nov-0 6-200 9 Hogan OD Jah. [address] , [address], [place], [facility], [place]. tel:[phone] [facility], [address] [place] [address] [address], [place], [place], [address], [place] tel:[phone] [facility] No Information Oct-3 0-200 9 Hogan OD Jah. [address] , [address], [place], [facility], [place]. tel:[phone] [facility], [address], [place], [place], [address], [place] tel:[phone] [facility] No Information Oct-0 9-200 9 Hogan OD Jah. [address] , [address], [place], [address], [place]. tel:[phone] [facility], [address] [place] [address] [address], [place], [place], [address], [place] tel:[phone] [facility] No Information Oct-0 2-200 9 Ohgan OD Jah. [address] , [address], [place], [address], [place]. tel:[phone] [facility], [address] [place] [address] [address], [place], [place], [address], [place] tel:[phone] [facility] No Information Sep-2 4-200 9 [facility] . [address], [address], [place], [place], [address], . tel:[phone] Referring Provider: Jah Hogan OD A, [address] [place], [place] [address], [place], [place], [facility]. tel:[phone] sulting Provider: Andressa Garcia, [address] [place], [place], [facility]. tel:[phone] [facility], [address] [place] [address] [address], [place], [place], [address], [place] tel:[phone] [facility] No Information Sep-2 2-200 9 Hogan OD Jah. [facility] [address], [address], [place], [address], [place]. tel:[phone] [facility], [address] [place] [address] [address], [place], [place], [address], [place] tel:[phone] [facility] No Information Sep-1 1-200 9 Hogan OD Jah. [address] [facility] , [address], [place], [address], [place]. tel:[phone] Family History Family Member Type Diagnosis Age At Onset No Information Payers Payer name Insurance type Covered democrat ID Authoriza tion(s) No Information Social History [...]
[2025-01-10 08:14] VITALS: BP 120/75; PULSE 60; RESP 18; TEMP 36.3; O2SAT 99; BMI 25.7
[2025-01-10] MEDS: LACTATED RINGERS 1,000 ML 150 ML IV CONT (08:23)
--- NOTE | 2025-01-10 08:42 | WPDHPUPDATE1 ---
History and Physical Update Update Date/Time: 01/10/25 08:42 History and Physical has been reviewed, including an updated exam of the patient. There are NO changes in the patient's condition. Risks, benefits, and alternatives have been discussed and questions answered. Patient agrees to proceed with procedure.
--- NOTE | 2025-01-10 08:50 | WPDANESEPPF ---
Anes - Initial Pre Proc Eval Procedure: Operation Date: 01/10/25 09:30 Proposed Procedures p Esophagogastroduodenoscopy - Yves West MD Date/Time: 01/10/25 08:50 Surgeon: Yves West MD Pre Op Diagnosis: Other specified symptoms and signs involving the c Patient Data Age: 69 Gender: F Height: 1.63 m Weight: 68 kg Last Vital Signs Temp 97.3 F L 01/10/25 08:14 Pulse 60 01/10/25 08:14 Resp 18 01/10/25 08:14 BP 120/75 01/10/25 08:14 Pulse Ox 99 01/10/25 08:14 O2 Del Method Room Air 01/10/25 08:14 Allergies Allergy/AdvReac Type Severity Reaction Status Date / Time No Known Allergies Allergy Verified 01/10/25 08:13 Home Medications ?Medication ?Instructions ?Recorded ?Confirmed ?Type famotidine 20 mg tablet 20 mg PO DAILY 12/25/24 01/10/25 History omeprazole 20 mg capsule,delayed 20 mg PO BID 1 month #60 caps 12/25/24 01/10/25 Rx release multivitamin (Daily Multi-Vitamin 1 tablet PO DAILY 12/27/24 01/10/25 History tablet) acetaminophen 500 mg tablet 1,000 mg (2 x 500 mg) PO TID PRN 01/01/25 01/10/25 Rx (Tylenol Extra Strength) pain #30 tabs ibuprofen 800 mg tablet 800 mg PO TID PRN pain #30 tabs 01/01/25 01/10/25 Rx Patient hx anesthesia problems: none Family hx anesthesia problems: none Results Review: All pre-operative results and documents have been reviewed as part of the pre-operative evaluation. [facility] Past Medical History Medical History Heartburn Chronic throat clearing Chronic cough Cataract Dizziness Screening mammogram, encounter for Encounter for Papanicolaou smear for cervical cancer screening Surgical History Surgical History Delivery by section (~1987) H/O colonoscopy (06/20/10) fmhx-to repeat in 5 yrs History of bunionectomy (~04/2017) History of orthopedic surgery (~09/2008) knee surgery & 1972 H/O major cardiovascular surgery (~2004) Family History Family History Mother Hypertension Cerebrovascular accident Father Lung cancer Cancer of kidney Sibling Lung cancer brother Social History Social History Smoking packs per day: 0.5 Smoking cigarettes per day: 10.0 Years smoked: 4 Smoking pack-years: 2.00 Smoking status: Former smoker Tobacco type: cigarettes Second hand tobacco smoke exposure: No Smoking end date: 09/06/1967 Alcohol intake: current Drinks per week: 6 Alcohol use details: glass of wine a day Substance use: never Substance use type: does not use Do You Feel Safe in your Home?: Yes Lack of Transportation: No Lack of Food: Never True Current Housing: I Have Housing Concerned About Future Housing: No Difficulty Paying Gas/Electric Bills: No Difficulty Paying for Meds: No Currently Unemployed: No Education: Associate Degree Difficulty w/ Childcare or Family Care: No Living arrangements: with family Additional living arrangements comments: Occupation/Education: retired Gender identity (if verbalized by the patient): Female Sexual Orientation (if Verbalized by the Patient): Straight or Heterosexual Spiritual care concerns: No Anes - Eval Final PreProcedure Day of Procedure 01/10/25 08:50 Patient weight: normal Heart: regular rate and rhythm Lungs: clear to auscultation Airway: Mallampati scale class II Neurological: alert and oriented Last oral intake: >/= 8 hours ASA classification: III Emergent: no Anesthetic plan: proceed Anesthesia type and monitoring: general GIVS and standard monitoring Results Review: All pre-operative results and documents have been reviewed as part of the pre-operative evaluation. Informed Consent: The patient's anesthetic plan and its attendant risks and benefits were discussed with the patient/family/POA. Questions were solicited and answers provided to the satisfaction of the patient/family/POA.
[2025-01-10 09:24] VITALS: BP 103/60; PULSE 66; RESP 18; O2SAT 98
[2025-01-10 09:34] VITALS: BP 106/61; PULSE 72; RESP 17; O2SAT 99
[2025-01-10 09:44] VITALS: BP 119/71; PULSE 64; RESP 19; O2SAT 99
== END 2025-01-10 10:04 | disposition home or self-care (01) ==
PROVIDERS: PCP Family Medicine; Referring Provider Nurse Practitioner Family; Visit Provider Internal Medicine Gastroenterology
PROC: 0DJ08ZZ Inspection of Upper Intestinal Tract, Via Natural or Artificial Opening Endoscopic (ICD-10-PCS; CPT 43239; principal; 2025-01-10 09:30)
DX: R09.89 Other specified symptoms and signs involving the circulatory and respiratory systems (principal); K21.00 Gastro-esophageal reflux disease with esophagitis, without bleeding; K29.50 Unspecified chronic gastritis without bleeding; R05.3 Chronic cough; Z79.1 Long term (current) use of non-steroidal anti-inflammatories (NSAID); Z98.890 Other specified postprocedural states; Z87.891 Personal history of nicotine dependence; Z80.1 Family history of malignant neoplasm of trachea, bronchus and lung; Z80.51 Family history of malignant neoplasm of kidney; Z82.49 Family history of ischemic heart disease and other diseases of the circulatory system
CPT/HCPCS: 43239; 88305; J2003; J2704; J7120